=== PATIENT | male | born 1965 ===

== ENCOUNTER 2018-03-13 13:58 | Inpatient (IN) | payer MEDICAID ==
[2018-03-13 13:58] VITALS: BMI 27.2
[2018-03-13] MEDS ORDERED: Iohexol 240 (50 ml) PO ONE (16:03)
[2018-03-13] MEDS ORDERED: Sodium Chloride 0.9% 1,000 ML IV STA (16:04)
--- NOTE | 2018-03-13 16:04 | ED PDOC ---
Addendum entered and electronically signed by Clover López PA-C 03/13/18 19:41: Addendum Addendum: 03/13/18 19:40 Dr. Lopez requested Pt to be started on Vanco and Cefepime. Orders placed Original Note: HPI: CCC, URI, Sore Throat Time Seen by Provider: 03/13/18 15:18 Chief Complaint (Nursing): Flu-like Symptoms Chief Complaint (Provider): Fever History Per: Patient Additional Complaint(s): 52 yo male, denies nay PMH, presents to ED with complaints of worsening chills, fever, back pain, testicular pain and burning on urination x 3 weeks now. Pt seen and evaluated for the same on 02/25 and was treated with Cipro in ED and went home on Levaquin. Diagnosed with epididymitis on US on 02/25/18. Pt admits being compliant on the medication, no relief in symptoms Pt denies any concern for STDs, denies nay recent history of unprotected sex Past Medical History Reviewed: Nursing Documentation, Vital Signs Vital Signs: Last Vital Signs Temp 99.0 F 03/13/18 14:19 Pulse 107 H 03/13/18 14:19 Resp 18 03/13/18 14:19 BP 117/68 03/13/18 14:19 Pulse Ox 99 03/13/18 14:19 - Medical History PMH: No Chronic Diseases Denies: Chronic Kidney Disease - Surgical History Surgical History: No Surg Hx - Family History Family History: States: Unknown Family Hx - Living Arrangements Living Arrangements: With Family - Social History Current smoker - smoking cessation education provided: No Alcohol: None Drugs: Denies - Immunization History Hx Tetanus Toxoid Vaccination: No Hx Influenza Vaccination: No Hx Pneumococcal Vaccination: No - Home Medications Home Medications: Ambulatory Orders Medication Instructions Recorded Unobtainable 03/20/17 Lidocaine 5% [Lidoderm] 1 ea TD DAILY PRN #20 patch 12/05/17 Naproxen 500 mg PO BID 7 Days #14 tab 12/05/17 Docusate Sodium [Colace] 100 mg PO BID #20 capsule 02/25/18 Levofloxacin [Levaquin] 500 mg PO DAILY #10 tablet 02/25/18 Naproxen 375 mg PO Q8 PRN #21 tablet 02/25/18 - Allergies Allergies/Adverse Reactions: Allergies Allergy/AdvReac Type Severity Reaction Status Date / Time No Known Allergies Allergy Verified 03/13/18 14:19 Review of Systems ROS Statement: Except As Marked, All Systems Reviewed And Found Negative Constitutional: Positive for: Fever, Chills Gastrointestinal: Positive for: Abdominal Pain Genitourinary Male: Positive for: Dysuria Physical Exam - Reviewed Nursing Documentation Reviewed: Yes Vital Signs Reviewed: Yes - Physical Exam Appears: Positive for: Non-toxic, No Acute Distress, Uncomfortable Head Exam: Positive for: ATRAUMATIC, NORMAL INSPECTION, NORMOCEPHALIC Skin: Positive for: Normal Color, Warm, Diaphoresis Eye Exam: Positive for: EOMI, Normal appearance, PERRL ENT: Positive for: Normal ENT Inspection Neck: Positive for: Normal, Painless ROM Cardiovascular/Chest: Positive for: Regular Rate, Rhythm Respiratory: Positive for: CNT, Normal Breath Sounds Gastrointestinal/Abdominal: Positive for: Normal Exam, Soft Male Genital Exam: Positive for: normal genitalia, epididymal tenderness, scrotum tenderness (L), testicular tenderness (L). Negative for: inguinal tenderness, lesions, urethral discharge Back: Positive for: Normal Inspection Extremity: Positive for: Normal ROM Neurologic/Psych: Positive for: Alert, Oriented - Laboratory Results Result Diagrams: 03/13/18 16:23 03/13/18 16:23 - ECG O2 Sat by Pulse Oximetry: 99 Medical Decision Making Medical Decision Making: T: 100.8 F P: 107 WBC 11.5 U.Dip (+) Nites, leuks and blood IV Vanco and Rocephin started, along with IVF and Toradol Re-eval, Pt reports pain improved. T: 98.9 F Lactate WNL US resulted: Epididymo-orchitis Case discussed with Dr. Palafox. agreed with admission at this time. Pt denies having a PMD, call placed to Dr. Diaz- grey on-call. Arrangements made. Dr. Ring and Dr. Lopez consulted as well. Disposition - Clinical Impression Clinical Impression: Epididymo-orchitis, Sepsis - Patient ED Disposition Is Patient to be Admitted: Yes - Disposition Disposition Time: 19:20 Condition: STABLE Instructions: Epididymo-orchitis (ED), Sepsis in Adults Forms: [employer] (Finnish)
[2018-03-13 16:29] LABS: BASO % 0.3 % (0.0-2.0); LYMPH # 1.2 K/uL (1.0-4.3); LYMPH % 10.2 % (20.0-40.0); MEAN CELL VOLUME 87.8 fl (80.0-94.0); MEAN CORPUSCULAR HEMOGLOBIN 29.5 pg (27.0-31.0); MEAN CORPUSCULAR HGB CONC 33.6 g/dL (33.0-37.0); MEAN PLATELET VOLUME 7.6 fl (7.2-11.7); MONO # 1.1 K/uL (0.0-0.8); MONO % 9.9 % (0.0-10.0); NEUT # 9.2 K/uL (1.8-7.0); NEUT % 79.6 % (50.0-75.0); RBC 4.42 Mil/uL (4.40-5.90); WHITE BLOOD COUNT 11.5 K/uL (4.8-10.8)
[2018-03-13] MEDS ORDERED: Iohexol 240 (50 ml) ONE (16:29)
[2018-03-13 16:35] LABS: SQUAMOUS EPITHIAL 1 /hpf (0-5); URINE BACTERIA MOD (<OCC); URINE BILIRUBIN NEGATIVE (NEGATIVE); URINE BLOOD LARGE (NEGATIVE); URINE CLARITY TURBID (Clear); URINE COLOR AMBER (YELLOW); URINE GLUCOSE (UA) NEG (Normal); URINE LEUKOCYTE ESTERASE LARGE Leu/uL (Negative); URINE PROTEIN 100 mg/dL (NEGATIVE)
[2018-03-13 16:40] LABS: ALB/GLOB RATIO 0.9 (1.0-2.1); ALT/SGPT 77 U/L (21-72); AMYLASE 50 U/L (30-110); AST/SGOT 61 U/L (17-59); BLOOD UREA NITROGEN 15 mg/dl (9-20); CALCIUM 8.9 mg/dL (8.4-10.2); GFR NON-AFRICAN AMERICAN > 60; LIPASE 64 U/L (23-300)
[2018-03-13 16:46] LABS: VENOUS BLOOD GAS BASE EXCESS 3.7 mmol/L (0.0-2.0); VENOUS BLOOD GAS PCO2 31 mmHg (40-60); VENOUS BLOOD GAS PO2 50 mm/Hg (30-55); VENOUS BLOOD PH 7.53 (7.32-7.43)
--- NOTE | 2018-03-13 17:05 | RAD ---
Date of service: 03/13/2018 HISTORY: cough COMPARISON: Chest radiograph dated 12/05/2017. FINDINGS: LUNGS: 1.4 x 1.4 cm nodular density in the left mid/upper lung. No active pulmonary disease. PLEURA: No significant pleural effusion identified, no pneumothorax apparent. CARDIOVASCULAR: Normal. OSSEOUS STRUCTURES: Multiple old right-sided rib fractures. Unchanged. VISUALIZED UPPER ABDOMEN: Right upper quadrant surgical clips. OTHER FINDINGS: None. IMPRESSION: 1.4 cm nodular density in the left mid/upper lung. CT scan can be obtained for further evaluation as clinically warranted on a nonemergent basis.
[2018-03-13] MEDS ORDERED: Iohexol 300 100 ML IJ ONE (17:19)
[2018-03-13] MEDS ORDERED: Sodium Chloride 0.9% 50 ML IV ONE (17:19)
[2018-03-13] MEDS ORDERED: cefTRIAXone (Rocephin) 1 gm Inj ONE (17:50)
--- NOTE | 2018-03-13 17:57 | US ---
Date of service: 03/13/2018 HISTORY: left testicular pain TECHNIQUE: Realtime sonography through the scrotum with color and doppler flow. COMPARISON: Testicular ultrasound performed 02/25/2018 FINDINGS: RIGHT TESTICLE: Measures 4.9 x 2.8 x 2.0 cm. Normal echotexture and flow. RIGHT EPIDIDYMIS: Epididymal head measures 1.0 x 1.0 x 0.7 cm. Grossly unremarkable appearance with normal flow. 0.3 x 0.4 x 0.3 cm cyst/spermatocele. LEFT TESTICLE: Measures 4.4 x 2.8 x 2.4 cm. Normal echotexture with increased flow. LEFT EPIDIDYMIS: Epididymal head measures 1.1 x 2.0 x 1.4 cm. Enlarged with increased flow. HYDROCELE: [id number] left hydrocele. VARICOCELE: None. OTHER FINDINGS: None. IMPRESSION: Interval enlargement of left epididymal head with increased vascularity. Interval development of increased left testicular flow. Findings consistent with progression to epididymo-orchitis.
[2018-03-13] MEDS ORDERED: Vancomycin 1 g Inj ONE (19:14)
[2018-03-13] MEDS ORDERED: Pneumococcal 23-Valent Vaccine IM ONE (23:18)
[2018-03-14] MEDS: Cefepime 2 GM in Sodium Chloride 0.9% 100 ML IVPB SCH ×2 (06:49→09:22)
[2018-03-14 07:07] LABS: HEMOGLOBIN 13.2 g/dL (12.0-18.0); MEAN CELL VOLUME 88.3 fl (80.0-94.0); MEAN CORPUSCULAR HEMOGLOBIN 29.6 pg (27.0-31.0); MEAN CORPUSCULAR HGB CONC 33.6 g/dL (33.0-37.0); RBC 4.46 Mil/uL (4.40-5.90); RED CELL DISTRIBUTION WIDTH 13.9 % (11.5-14.5); WHITE BLOOD COUNT 16.8 K/uL (4.8-10.8)
[2018-03-14 07:52] LABS: ALB/GLOB RATIO 0.9 (1.0-2.1); ALBUMIN 3.6 g/dL (3.5-5.0); ALT/SGPT 61 U/L (21-72); AST/SGOT 48 U/L (17-59); BLOOD UREA NITROGEN 11 mg/dl (9-20); CALCIUM 8.7 mg/dL (8.4-10.2); GFR NON-AFRICAN AMERICAN > 60
--- NOTE | 2018-03-14 08:56 | CT ---
Date of service: 03/13/2018 PROCEDURE: CT Abdomen and Pelvis with contrast HISTORY: pelvic pain, fever COMPARISON: None. TECHNIQUE: Contrast dose: 95 mL Omnipaque 300 Radiation dose: Total exam DLP = 556.3 mGy-cm. This CT exam was performed using one or more of the following dose reduction techniques: Automated exposure control, adjustment of the mA and/or kV according to patient size, and/or use of iterative reconstruction technique. FINDINGS: LOWER THORAX: Unremarkable. LIVER: Adjacent low-density structures in the right hepatic lobe measuring 2.2 and 2.5 cm with adjacent coil mass. No ductal dilatation. GALLBLADDER AND BILE DUCTS: Unremarkable. PANCREAS: Unremarkable. No gross lesion or ductal dilatation. SPLEEN: Unremarkable. ADRENALS: Unremarkable. No mass. KIDNEYS AND URETERS: Unremarkable. No hydronephrosis. No solid mass. VASCULATURE: Unremarkable. No aortic aneurysm. BOWEL: Unremarkable. No obstruction. No gross mural thickening. APPENDIX: Normal appendix. PERITONEUM: Unremarkable. No free fluid. No free air. LYMPH NODES: Unremarkable. No enlarged lymph nodes. BLADDER: Unremarkable. REPRODUCTIVE: Unremarkable. BONES: No acute fracture. Old right scapular and posterior right rib fractures. Age-indeterminate compression deformity of L1. OTHER FINDINGS: None. IMPRESSION: No acute abdominal pelvic pathology. Adjacent low-density structures in the right hepatic lobe with adjacent coil mass. Correlation with prior imaging and procedural history is recommended. Age-indeterminate L1 superior endplate compression deformity. MRI can be obtained for further characterization of acuity as clinically warranted.
--- NOTE | 2018-03-14 10:33 | CP.PCM.HP ---
History of Present Illness - History of Present Illness History of Present Illness: 52 YR OLD MALE ADMITTED VIA THE ER BECAUSE OF FEVER/CHILLS AND TESTICULAR PAINS.HE WAS SEEN IN THE ER ON 02/25/18 BECAUSE OF SIMILAR COMPLAINTS AND SENT HOME ON CIPRO BUT SYMPTOMS WORSENED. HX OF CHRONIC ALCOHOL USE Present on Admission - Present on Admission Any Indicators Present on Admission: No Past Patient History - Infectious Disease Hx of Infectious Diseases: None - Past Medical History & Family History Past Medical History?: No - Past Social History Smoking Status: Never Smoked - CARDIAC Hx Cardiac Disorders: No - PULMONARY Hx Respiratory Disorders: No - NEUROLOGICAL Hx Neurological Disorder: No - HEENT Hx HEENT Problems: No - RENAL Hx Chronic Kidney Disease: No - ENDOCRINE/METABOLIC Hx Endocrine Disorders: No - HEMATOLOGICAL/ONCOLOGICAL Hx Blood Disorders: No - INTEGUMENTARY Hx Dermatological Problems: No - MUSCULOSKELETAL/RHEUMATOLOGICAL Hx Musculoskeletal Disorders: No Hx Falls: No - GASTROINTESTINAL Hx Gastrointestinal Disorders: No - GENITOURINARY/GYNECOLOGICAL Hx Genitourinary Disorders: No - PSYCHIATRIC Hx Psychophysiologic Disorder: Yes Hx Substance Use: No Other/Comment: Alcohol Abuse - SURGICAL HISTORY Hx Surgeries: Yes Hx Orthopedic Surgery: Yes - ANESTHESIA Hx Anesthesia: Yes Hx Anesthesia Reactions: No Meds Allergies/Adverse Reactions: Allergies Allergy/AdvReac Type Severity Reaction Status Date / Time No Known Allergies Allergy Verified 03/13/18 14:19 Physical Exam - Constitutional Appears: In Acute Distress - Head Exam Head Exam: ATRAUMATIC, NORMAL INSPECTION, NORMOCEPHALIC - Eye Exam Eye Exam: EOMI, Normal appearance, PERRL Pupil Exam: NORMAL ACCOMODATION, PERRL - ENT Exam ENT Exam: Mucous Membranes Moist, Normal Exam - Neck Exam Neck exam: Positive for: Normal Inspection - Respiratory Exam Respiratory Exam: Clear to Auscultation Bilateral, NORMAL BREATHING PATTERN - Cardiovascular Exam Cardiovascular Exam: REGULAR RHYTHM - GI/Abdominal Exam GI & Abdominal Exam: Normal Bowel Sounds, Soft. absent: Tenderness - Rectal Exam Rectal Exam: NORMAL INSPECTION - Exam Exam: Scrotal Swelling, Testicular Tenderness - Extremities Exam Extremities exam: Positive for: normal inspection - Back Exam Back exam: NORMAL INSPECTION - Neurological Exam Neurological exam: Alert, CN II-XII Intact, Normal Gait, Oriented x3, Reflexes Normal - Psychiatric Exam Psychiatric exam: Normal Affect, Normal Mood - Skin Skin Exam: Dry, Intact, Normal Color, Warm Results - Vital Signs Recent Vital Signs: Last Vital Signs Temp 99 F 03/14/18 08:53 Pulse 103 H 03/14/18 08:53 Resp 18 03/14/18 08:53 BP 134/75 03/14/18 08:53 Pulse Ox 98 03/14/18 08:53 - Labs Result Diagrams: 03/14/18 05:52 03/14/18 05:52 Labs: Laboratory Results - last 24 hr 03/13/18 03/13/18 03/13/18 04:25 16:23 16:23 WBC 11.5 H RBC 4.42 Hgb 13.0 Hct 38.8 MCV 87.8 MCH 29.5 MCHC 33.6 RDW 14.0 Plt Count 216 MPV 7.6 Neut % (Auto) 79.6 H Lymph % (Auto) 10.2 L Bates % (Auto) 9.9 Eos % (Auto) 0.0 Baso % (Auto) 0.3 Neut # (Auto) 9.2 H Lymph # (Auto) 1.2 Bates # (Auto) 1.1 H Eos # (Auto) 0.0 Baso # (Auto) 0.0 pO2 50 VBG pH 7.53 H VBG pCO2 31 L VBG HCO3 27.6 VBG Total CO2 26.9 VBG O2 Sat (Calc) 92.9 H VBG Base Excess 3.7 H VBG Potassium 3.8 Sodium 129.0 L 132 Chloride 96.0 L 96 L Glucose 118 H Lactate 1.0 FiO2 21.0 Potassium 3.8 Carbon Dioxide 26 Anion Gap 14 BUN 15 Creatinine 0.9 Est GFR ( Amer) > 60 Est GFR (Non-Af Amer) > 60 Random Glucose 116 H Calcium 8.9 Total Bilirubin 0.6 AST 61 H D ALT 77 H D Alkaline Phosphatase 180 H D Total Protein 8.1 Albumin 4.0 Globulin 4.2 H Albumin/Globulin Ratio 0.9 L Amylase 50 Lipase 64 Prostate Specific Ag Venous Blood Potassium 3.8 Urine Color Urine Clarity Urine pH Ur Specific [place] Urine Protein Urine Glucose (UA) Urine Ketones Urine Blood Urine Nitrate Urine Bilirubin Urine Urobilinogen Ur Leukocyte Esterase Urine RBC (Auto) Urine Microscopic WBC Ur Squamous Epith Cells Ur Transition Epith Cell Urine Bacteria Influenza Typ A,B (EIA) 03/13/18 03/13/18 03/14/18 16:23 16:23 05:52 WBC 16.8 H RBC 4.46 Hgb 13.2 Hct 39.4 MCV 88.3 MCH 29.6 MCHC 33.6 RDW 13.9 Plt Count 206 MPV Neut % (Auto) Lymph % (Auto) Bates % (Auto) Eos % (Auto) Baso % (Auto) Neut # (Auto) Lymph # (Auto) Bates # (Auto) Eos # (Auto) Baso # (Auto) pO2 VBG pH VBG pCO2 VBG HCO3 VBG Total CO2 VBG O2 Sat (Calc) VBG Base Excess VBG Potassium Sodium Chloride Glucose Lactate FiO2 Potassium Carbon Dioxide Anion Gap BUN Creatinine Est GFR ( Amer) Est GFR (Non-Af Amer) Random Glucose Calcium Total Bilirubin AST ALT Alkaline Phosphatase Total Protein Albumin Globulin Albumin/Globulin Ratio Amylase Lipase Prostate Specific Ag Venous Blood Potassium Urine Color Kaur Urine Clarity Turbid Urine pH 6.0 Ur Specific [place] 1.016 Urine Protein 100 Urine Glucose (UA) Neg Urine Ketones 20 Urine Blood Large Urine Nitrate Positive H Urine Bilirubin Negative Urine Urobilinogen 2.0 Ur Leukocyte Esterase Large Urine RBC (Auto) 98 H Urine Microscopic WBC 1414 H Ur Squamous Epith Cells 1 Ur Transition Epith Cell 3 Urine Bacteria Mod H Influenza Typ A,B (EIA) Negative for flu a/b 03/14/18 05:52 WBC RBC Hgb Hct MCV MCH MCHC RDW Plt Count MPV Neut % (Auto) Lymph % (Auto) Bates % (Auto) Eos % (Auto) Baso % (Auto) Neut # (Auto) Lymph # (Auto) Bates # (Auto) Eos # (Auto) Baso # (Auto) pO2 VBG pH VBG pCO2 VBG HCO3 VBG Total CO2 VBG O2 Sat (Calc) VBG Base Excess VBG Potassium Sodium 134 Chloride 96 L Glucose Lactate FiO2 Potassium 3.9 Carbon Dioxide 28 Anion Gap 14 BUN 11 Creatinine 0.7 L Est GFR ( Amer) > 60 Est GFR (Non-Af Amer) > 60 Random Glucose 124 H Calcium 8.7 Total Bilirubin 0.6 AST 48 ALT 61 Alkaline Phosphatase 170 H Total Protein 7.6 Albumin 3.6 Globulin 4.0 H Albumin/Globulin Ratio 0.9 L Amylase Lipase Prostate Specific Ag 11.2 H Venous Blood Potassium Urine Color Urine Clarity Urine pH Ur Specific [place] Urine Protein Urine Glucose (UA) Urine Ketones Urine Blood Urine Nitrate Urine Bilirubin Urine Urobilinogen Ur Leukocyte Esterase Urine RBC (Auto) Urine Microscopic WBC Ur Squamous Epith Cells Ur Transition Epith Cell Urine Bacteria Influenza Typ A,B (EIA) Assessment & Plan - Assessment and Plan (Free Text) Assessment: ACUTE EPIDIDYMITIS ORCHITIS PROBABLE ALCOHOLIC LIVER DZ LIVER LESION PULMONARY NODULE SEPSIS ELEVATED PSA--PROSTATITIS[DOUBT MALIGNANCY] Plan: UROLOGY AND ID EVALUATION IV ANTIBIOTICS ANALGESICS CT SCAN OF CHEST MRI OF LIVER
[2018-03-14] MEDS: Dextrose 5%/0.45% NS 1,000 ML IV SCH (11:31)
--- NOTE | 2018-03-14 11:41 | CP.PCM.CON ---
History of Present Illness - History of Present Illness History of Present Illness: Infectious Disease Consultation Note- HPI- Patient is a 52 year old male with no PMH who is admitted with left testicular swelling and pain and redness. Patient states he was in hospital 2 weeks ago for similar complaints and he was given IV abx and d/c home on oral cipro . He states his condition did not improve on the oral antibiotics and his left testicular region swelling and pain worsened and he also developed fever and chills and bodyaches and hence he returned to hospital for further evaluation and treatment. He denies any dysurea and denies any penile discharge, denies any sores or vesicles. Denies any recent sexual encounters. denies past history of epididymitis. he denies any sob but has dry cough as per him for few days, denies any KING, denies any nausea or vomiting, denies any diarrhea, denies any abd. pain, denies any chest pain. Review of Systems - Review of Systems Review of Systems: ROS- as stated in HPI Past Patient History - Infectious Disease Hx of Infectious Diseases: None - Past Medical History & Family History Past Medical History?: No - Past Social History Smoking Status: Never Smoked Alcohol: Other Drugs: Denies Home Situation {Lives}: Alone - CARDIAC Hx Cardiac Disorders: No - PULMONARY Hx Respiratory Disorders: No - NEUROLOGICAL Hx Neurological Disorder: No - HEENT Hx HEENT Problems: No - RENAL Hx Chronic Kidney Disease: No - ENDOCRINE/METABOLIC Hx Endocrine Disorders: No - HEMATOLOGICAL/ONCOLOGICAL Hx Blood Disorders: No - INTEGUMENTARY Hx Dermatological Problems: No - MUSCULOSKELETAL/RHEUMATOLOGICAL Hx Musculoskeletal Disorders: No Hx Falls: No - GASTROINTESTINAL Hx Gastrointestinal Disorders: No - GENITOURINARY/GYNECOLOGICAL Hx Genitourinary Disorders: No - PSYCHIATRIC Hx Psychophysiologic Disorder: Yes Hx Substance Use: No Other/Comment: Alcohol Abuse - SURGICAL HISTORY Hx Surgeries: Yes Hx Orthopedic Surgery: Yes - ANESTHESIA Hx Anesthesia: Yes Hx Anesthesia Reactions: No Meds Allergies/Adverse Reactions: Allergies Allergy/AdvReac Type Severity Reaction Status Date / Time No Known Allergies Allergy Verified 03/13/18 14:19 - Medications Medications: Current Medications Acetaminophen (Tylenol 325mg Tab) 650 mg PO Q4 PRN PRN Reason: Fever >100.4 F Cefepime HCl 2 gm/ Sodium (Chloride) 100 mls @ 100 mls/hr IVPB Q12 DOMONIQUE; Protocol Last Admin: 03/14/18 09:22 Dose: 100 mls/hr Vancomycin HCl 500 mg/ Sodium (Chloride) 100 mls @ 100 mls/hr IVPB Q12 DOMONIQUE; Protocol Last Admin: 03/14/18 09:22 Dose: 100 mls/hr Dextrose/Sodium Chloride (Dextrose 5%/0.45% Ns 1000 Ml) 1,000 mls @ 42 mls/hr IV .[id number] DOMONIQUE Stop: 03/15/18 10:40 Last Admin: 03/14/18 11:31 Dose: 42 mls/hr Morphine Sulfate (Morphine) 2 mg IVP Q4 PRN PRN Reason: Pain, severe (8-10) Last Admin: 03/14/18 06:48 Dose: 2 mg Physical Exam - Constitutional Appears: Non-toxic, No Acute Distress - Head Exam Head Exam: ATRAUMATIC - Eye Exam Eye Exam: EOMI, PERRL - ENT Exam ENT Exam: Normal Oropharynx - Neck Exam Neck exam: Positive for: Full Rom - Respiratory Exam Respiratory Exam: Clear to Auscultation Bilateral, NORMAL BREATHING PATTERN - Cardiovascular Exam Cardiovascular Exam: RRR, +S1, +S2 - GI/Abdominal Exam GI & Abdominal Exam: Normal Bowel Sounds, Soft Additional comments: Nt, ND - Exam Exam: Scrotal Swelling Additional comments: b/l scrotal swelling l>r with erythema no discharge, no lesions 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) - Extremities Exam Extremities exam: Positive for: normal inspection - Neurological Exam Neurological exam: Alert, Oriented x3 Results - Vital Signs Recent Vital Signs: Last Vital Signs Temp 99 F 03/14/18 08:53 Pulse 103 H 03/14/18 09:00 Resp 18 03/14/18 08:53 BP 134/75 03/14/18 08:53 Pulse Ox 98 03/14/18 08:53 - Labs Result Diagrams: 03/14/18 05:52 03/14/18 05:52 Labs: Laboratory Results - last 24 hr 03/13/18 03/13/18 03/13/18 04:25 16:23 16:23 WBC 11.5 H RBC 4.42 Hgb 13.0 Hct 38.8 MCV 87.8 MCH 29.5 MCHC 33.6 RDW 14.0 Plt Count 216 MPV 7.6 Neut % (Auto) 79.6 H Lymph % (Auto) 10.2 L Overton % (Auto) 9.9 Eos % (Auto) 0.0 Baso % (Auto) 0.3 Neut # (Auto) 9.2 H Lymph # (Auto) 1.2 Overton # (Auto) 1.1 H Eos # (Auto) 0.0 Baso # (Auto) 0.0 pO2 50 VBG pH 7.53 H VBG pCO2 31 L VBG HCO3 27.6 VBG Total CO2 26.9 VBG O2 Sat (Calc) 92.9 H VBG Base Excess 3.7 H VBG Potassium 3.8 Sodium 129.0 L 132 Chloride 96.0 L 96 L Glucose 118 H Lactate 1.0 FiO2 21.0 Potassium 3.8 Carbon Dioxide 26 Anion Gap 14 BUN 15 Creatinine 0.9 Est GFR ( Amer) > 60 Est GFR (Non-Af Amer) > 60 Random Glucose 116 H Calcium 8.9 Total Bilirubin 0.6 AST 61 H D ALT 77 H D Alkaline Phosphatase 180 H D Total Protein 8.1 Albumin 4.0 Globulin 4.2 H Albumin/Globulin Ratio 0.9 L Amylase 50 Lipase 64 Prostate Specific Ag Venous Blood Potassium 3.8 Urine Color Urine Clarity Urine pH Ur Specific [place] Urine Protein Urine Glucose (UA) Urine Ketones Urine Blood Urine Nitrate Urine Bilirubin Urine Urobilinogen Ur Leukocyte Esterase Urine RBC (Auto) Urine Microscopic WBC Ur Squamous Epith Cells Ur Transition Epith Cell Urine Bacteria Influenza Typ A,B (EIA) 03/13/18 03/13/18 03/14/18 16:23 16:23 05:52 WBC 16.8 H RBC 4.46 Hgb 13.2 Hct 39.4 MCV 88.3 MCH 29.6 MCHC 33.6 RDW 13.9 Plt Count 206 MPV Neut % (Auto) Lymph % (Auto) Overton % (Auto) Eos % (Auto) Baso % (Auto) Neut # (Auto) Lymph # (Auto) Overton # (Auto) Eos # (Auto) Baso # (Auto) pO2 VBG pH VBG pCO2 VBG HCO3 VBG Total CO2 VBG O2 Sat (Calc) VBG Base Excess VBG Potassium Sodium Chloride Glucose Lactate FiO2 Potassium Carbon Dioxide Anion Gap BUN Creatinine Est GFR ( Amer) Est GFR (Non-Af Amer) Random Glucose Calcium Total Bilirubin AST ALT Alkaline Phosphatase Total Protein Albumin Globulin Albumin/Globulin Ratio Amylase Lipase Prostate Specific Ag Venous Blood Potassium Urine Color Kaur Urine Clarity Turbid Urine pH 6.0 Ur Specific [place] 1.016 Urine Protein 100 Urine Glucose (UA) Neg Urine Ketones 20 Urine Blood Large Urine Nitrate Positive H Urine Bilirubin Negative Urine Urobilinogen 2.0 Ur Leukocyte Esterase Large Urine RBC (Auto) 98 H Urine Microscopic WBC 1414 H Ur Squamous Epith Cells 1 Ur Transition Epith Cell 3 Urine Bacteria Mod H Influenza Typ A,B (EIA) Negative for flu a/b 03/14/18 05:52 WBC RBC Hgb Hct MCV MCH MCHC RDW Plt Count MPV Neut % (Auto) Lymph % (Auto) Overton % (Auto) Eos % (Auto) Baso % (Auto) Neut # (Auto) Lymph # (Auto) Overton # (Auto) Eos # (Auto) Baso # (Auto) pO2 VBG pH VBG pCO2 VBG HCO3 VBG Total CO2 VBG O2 Sat (Calc) VBG Base Excess VBG Potassium Sodium 134 Chloride 96 L Glucose Lactate FiO2 Potassium 3.9 Carbon Dioxide 28 Anion Gap 14 BUN 11 Creatinine 0.7 L Est GFR ( Amer) > 60 Est GFR (Non-Af Amer) > 60 Random Glucose 124 H Calcium 8.7 Total Bilirubin 0.6 AST 48 ALT 61 Alkaline Phosphatase 170 H Total Protein 7.6 Albumin 3.6 Globulin 4.0 H Albumin/Globulin Ratio 0.9 L Amylase Lipase Prostate Specific Ag 11.2 H Venous Blood Potassium Urine Color Urine Clarity Urine pH Ur Specific [place] Urine Protein Urine Glucose (UA) Urine Ketones Urine Blood Urine Nitrate Urine Bilirubin Urine Urobilinogen Ur Leukocyte Esterase Urine RBC (Auto) Urine Microscopic WBC Ur Squamous Epith Cells Ur Transition Epith Cell Urine Bacteria Influenza Typ A,B (EIA) Laboratory Results - last 72 hr 03/13/18 03/13/18 03/13/18 04:25 16:23 16:23 WBC 11.5 H RBC 4.42 Hgb 13.0 Hct 38.8 MCV 87.8 MCH 29.5 MCHC 33.6 RDW 14.0 Plt Count 216 MPV 7.6 Neut % (Auto) 79.6 H Lymph % (Auto) 10.2 L Over[place] % (Auto) 9.9 Eos % (Auto) 0.0 Baso % (Auto) 0.3 Neut # (Auto) 9.2 H Lymph # (Auto) 1.2 Overton # (Auto) 1.1 H Eos # (Auto) 0.0 Baso # (Auto) 0.0 pO2 50 VBG pH 7.53 H VBG pCO2 31 L VBG HCO3 27.6 VBG Total CO2 26.9 VBG O2 Sat (Calc) 92.9 H VBG Base Excess 3.7 H VBG Potassium 3.8 Sodium 129.0 L 132 Chloride 96.0 L 96 L Glucose 118 H Lactate 1.0 FiO2 21.0 Potassium 3.8 Carbon Dioxide 26 Anion Gap 14 BUN 15 Creatinine 0.9 Est GFR ( Amer) > 60 Est GFR (Non-Af Amer) > 60 Random Glucose 116 H Calcium 8.9 Total Bilirubin 0.6 AST 61 H D ALT 77 H D Alkaline Phosphatase 180 H D Total Protein 8.1 Albumin 4.0 Globulin 4.2 H Albumin/Globulin Ratio 0.9 L Amylase 50 Lipase 64 Prostate Specific Ag Venous Blood Potassium 3.8 Urine Color Urine Clarity Urine pH Ur Specific [place] Urine Protein Urine Glucose (UA) Urine Ketones Urine Blood Urine Nitrate Urine Bilirubin Urine Urobilinogen Ur Leukocyte Esterase Urine RBC (Auto) Urine Microscopic WBC Ur Squamous Epith Cells Ur Transition Epith Cell Urine Bacteria Influenza Typ A,B (EIA) 03/13/18 03/13/18 03/14/18 16:23 16:23 05:52 WBC 16.8 H RBC 4.46 Hgb 13.2 Hct 39.4 MCV 88.3 MCH 29.6 MCHC 33.6 RDW 13.9 Plt Count 206 MPV Neut % (Auto) Lymph % (Auto) Overton % (Auto) Eos % (Auto) Baso % (Auto) Neut # (Auto) Lymph # (Auto) Over[place] # (Auto) Eos # (Auto) Baso # (Auto) pO2 VBG pH VBG pCO2 VBG HCO3 VBG Total CO2 VBG O2 Sat (Calc) VBG Base Excess VBG Potassium Sodium Chloride Glucose Lactate FiO2 Potassium Carbon Dioxide Anion Gap BUN Creatinine Est GFR ( Amer) Est GFR (Non-Af Amer) Random Glucose Calcium Total Bilirubin AST ALT Alkaline Phosphatase Total Protein Albumin Globulin Albumin/Globulin Ratio Amylase Lipase Prostate Specific Ag Venous Blood Potassium Urine Color Kaur Urine Clarity Turbid Urine pH 6.0 Ur Specific [place] 1.016 Urine Protein 100 Urine Glucose (UA) Neg Urine Ketones 20 Urine Blood Large Urine Nitrate Positive H Urine Bilirubin Negative Urine Urobilinogen 2.0 Ur Leukocyte Esterase Large Urine RBC (Auto) 98 H Urine Microscopic WBC 1414 H Ur Squamous Epith Cells 1 Ur Transition Epith Cell 3 Urine Bacteria Mod H Influenza Typ A,B (EIA) Negative for flu a/b 03/14/18 05:52 WBC RBC Hgb Hct MCV MCH MCHC RDW Plt Count MPV Neut % (Auto) Lymph % (Auto) Over[place] % (Auto) Eos % (Auto) Baso % (Auto) Neut # (Auto) Lymph # (Auto) [place] # (Auto) Eos # (Auto) Baso # (Auto) pO2 VBG pH VBG pCO2 VBG HCO3 VBG Total CO2 VBG O2 Sat (Calc) VBG Base Excess VBG Potassium Sodium 134 Chloride 96 L Glucose Lactate FiO2 Potassium 3.9 Carbon Dioxide 28 Anion Gap 14 BUN 11 Creatinine 0.7 L Est GFR ( Amer) > 60 Est GFR (Non-Af Amer) > 60 Random Glucose 124 H Calcium 8.7 Total Bilirubin 0.6 AST 48 ALT 61 Alkaline Phosphatase 170 H Total Protein 7.6 Albumin 3.6 Globulin 4.0 H Albumin/Globulin Ratio 0.9 L Amylase Lipase Prostate Specific Ag 11.2 H Venous Blood Potassium Urine Color Urine Clarity Urine pH Ur Specific [place] Urine Protein Urine Glucose (UA) Urine Ketones Urine Blood Urine Nitrate Urine Bilirubin Urine Urobilinogen Ur Leukocyte Esterase Urine RBC (Auto) Urine Microscopic WBC Ur Squamous Epith Cells Ur Transition Epith Cell Urine Bacteria Influenza Typ A,B (EIA) Microbiology 03/13/18 16:00 Blood-Venous Gram Stain - Final 02/25/18 19:30 Urine Urine Culture - Final Escherichia Coli 03/13/18 16:23 Urine,Random Urine Culture - Preliminary Gram Negative Brent 03/13/18 16:00 Blood-Venous Blood Culture - Preliminary 03/13/18 16:00 Blood-Venous Gram Negative Brent Accession No. : [id number] Patient Name / ID : SHANI AGUIAR / [id number] Exam Date : 03/13/2018 18:49:50 ( Approved ) Study Comment : Sex / Age : M / 52Y Creator : Trent Gallegos MD Dictator : Trent Gallegos MD Senior Shipping Clerk : Home Care Chaplain : Trent Gallegos MD Approver2 : Report Date : 03/14/2018 08:54:42 My Comment : Date of service: 03/13/2018 PROCEDURE: CT Abdomen and Pelvis with contrast HISTORY: pelvic pain, fever COMPARISON: None. TECHNIQUE: Contrast dose: 95 mL Omnipaque 300 Radiation dose: Total exam DLP = 556.3 mGy-cm. This CT exam was performed using one or more of the following dose reduction techniques: Automated exposure control, adjustment of the mA and/or kV according to patient size, and/or use of iterative reconstruction technique. FINDINGS: LOWER THORAX: Unremarkable. LIVER: Adjacent low-density structures in the right hepatic lobe measuring 2.2 and 2.5 cm with adjacent coil mass. No ductal dilatation. GALLBLADDER AND BILE DUCTS: Unremarkable. PANCREAS: Unremarkable. No gross lesion or ductal dilatation. SPLEEN: Unremarkable. ADRENALS: Unremarkable. No mass. KIDNEYS AND URETERS: Unremarkable. No hydronephrosis. No solid mass. VASCULATURE: Unremarkable. No aortic aneurysm. BOWEL: Unremarkable. No obstruction. No gross mural thickening. APPENDIX: Normal appendix. PERITONEUM: Unremarkable. No free fluid. No free air. LYMPH NODES: Unremarkable. No enlarged lymph nodes. BLADDER: Unremarkable. REPRODUCTIVE: Unremarkable. BONES: No acute fracture. Old right scapular and posterior right rib fractures. Age- indeterminate compression deformity of L1. OTHER FINDINGS: None. IMPRESSION: No acute abdominal pelvic pathology. Adjacent low-density structures in the right hepatic lobe with adjacent coil mas s. Correlation with prior imaging and procedural history is recommended. Age-indeterminate L1 superior endplate compression deformity. MRI can be obtained for further characterization of acuity as clinically warranted. Accession No. : [id number] Patient Name / ID : SHANI AGUIAR / [id number] Exam Date : 03/13/2018 16:01:30 ( Approved ) Study Comment : Sex / Age : M / 52Y Creator : Trent Gallegos MD Dictator : Trent Gallegos MD Senior Shipping Clerk : Home Care Chaplain : Trent Gallegos MD Approver2 : Report Date : 03/13/2018 17:56:15 My Comment : Date of service: 03/13/2018 HISTORY: left testicular pain TECHNIQUE: Realtime sonography through the scrotum with color and doppler flow. COMPARISON: Testicular ultrasound performed 02/25/2018 FINDINGS: RIGHT TESTICLE: Measures 4.9 x 2.8 x 2.0 cm. Normal echotexture and flow. RIGHT EPIDIDYMIS: Epididymal head measures 1.0 x 1.0 x 0.7 cm. Grossly unremarkable appearance with normal flow. 0.3 x 0.4 x 0.3 cm cyst/spermatocele. LEFT TESTICLE: Measures 4.4 x 2.8 x 2.4 cm. Normal echotexture with increased flow. LEFT EPIDIDYMIS: Epididymal head measures 1.1 x 2.0 x 1.4 cm. Enlarged with increased flow. HYDROCELE: Gmyg-[id number] left hydrocele. VARICOCELE: None. OTHER FINDINGS: None. IMPRESSION: Interval enlargement of left epididymal head with increased vascularity. Interval development of increased left testicular flow. Findings consistent with progression to epididymo-orchitis. Assessment & Plan (1) Epididymo-orchitis Status: Acute (2) Sepsis Status: Acute (3) Bacteremia due to Gram-negative bacteria Status: Acute - Assessment and Plan (Free Text) Assessment: A/P- 52 year old male admitted with left epididimo-orchitis found to also have e.coli UTI and GNR bacteremia. plan- await ID and sensitivity of the GNR in blood cx. advise to place on IV meropenem for broad gram neg coverage for both e.coli UTI and the GNR bactermia. advise to also start IV doxycycline 100 mg BID. check urien GC/Chlamydia. check RPR. check HIV ab/AG. check 2 more blood cx. check TTE r/o any vegetations. all labs and imaging reviewed. all above d/w patient and he verbalizes full understanding of all above and agrees with above plan of care. Thank you fro allowing me to take part in the care of this patient.
[2018-03-14] MEDS: Meropenem 1 GM in Sodium Chloride 0.9% 100 ML IVPB SCH (17:05)
--- NOTE | 2018-03-14 21:34 | CP.PCM.PN ---
Subjective - Date & Time of Evaluation Date of Evaluation: 03/14/18 Time of Evaluation: 21:30 - Subjective Subjective: 52 year old hisp male who presented in er again because left testicular swelling did not improve on cipro and he felt feverish at home. Scrotal us consistant with epidimoorchitis. Pe consistant with epidimoorchitis A Epidimititis not re sponding to cipro Suggest, Continue antibiotica as per ID adjust based on sensitivites a full 10 to 14 day course of sensitive antibiotics. Itz Objective - Vital Signs/Intake and Output Vital Signs (last 24 hours): Temp Pulse Resp BP Pulse Ox 99.0 F 96 H 18 119/72 95 03/14/18 19:51 03/14/18 20:47 03/14/18 19:51 03/14/18 19:51 03/14/18 19:51 - Medications Medications: Current Medications Acetaminophen (Tylenol 325mg Tab) 650 mg PO Q4 PRN PRN Reason: Fever >100.4 F Dextrose/Sodium Chloride (Dextrose 5%/0.45% Ns 1000 Ml) 1,000 mls @ 42 mls/hr IV .[id number] DOMONIQUE Stop: 03/15/18 10:40 Last Admin: 03/14/18 11:31 Dose: 42 mls/hr Meropenem 1 gm/ Sodium (Chloride) 100 mls @ 100 mls/hr IVPB Q8 DOMONIQUE; Protocol Last Admin: 03/14/18 17:05 Dose: 100 mls/hr Doxycycline Hyclate 100 mg/ (Sodium Chloride) 100 mls @ 100 mls/hr IVPB Q12 DOMONIQUE; Protocol Last Admin: 03/14/18 20:09 Dose: 100 mls/hr Morphine Sulfate (Morphine) 2 mg IVP Q4 PRN PRN Reason: Pain, severe (8-10) Last Admin: 03/14/18 17:01 Dose: 2 mg - Labs Labs: 03/14/18 05:52 03/14/18 05:52
[2018-03-15 05:41] LABS: BASO % 0.2 % (0.0-2.0); HEMOGLOBIN 13.4 g/dL (12.0-18.0); LYMPH # 1.3 K/uL (1.0-4.3); LYMPH % 8.4 % (20.0-40.0); MEAN CELL VOLUME 88.6 fl (80.0-94.0); MEAN CORPUSCULAR HEMOGLOBIN 29.5 pg (27.0-31.0); MEAN CORPUSCULAR HGB CONC 33.3 g/dL (33.0-37.0); MEAN PLATELET VOLUME 8.4 fl (7.2-11.7); MONO % 6.9 % (0.0-10.0); NEUT # 12.8 K/uL (1.8-7.0); NEUT % 84.5 % (50.0-75.0); PLATELET COUNT 217 K/uL (130-400); RBC 4.56 Mil/uL (4.40-5.90); RED CELL DISTRIBUTION WIDTH 14.1 % (11.5-14.5); WHITE BLOOD COUNT 15.2 K/uL (4.8-10.8)
[2018-03-15 05:47] LABS: BLOOD UREA NITROGEN 10 mg/dl (9-20); CALCIUM 8.7 mg/dL (8.4-10.2); GFR NON-AFRICAN AMERICAN > 60
--- NOTE | 2018-03-15 06:17 | CON ---
DATE: 03/14/2018 TIME: Approximately 6 p.m. CHIEF COMPLAINT: Left testicular pain. HISTORY OF PRESENT ILLNESS: The patient was in the [place] ER the week prior to admission and treated with Cipro for left epididymitis. He says his left testicular swelling did not improve, and he noted a fever at home. The patient has been afebrile in the hospital. He denies any difficulty in urination. He states he voids well and has no burning and dysuria. The patient has a history of EtOH use. REVIEW OF SYSTEMS: RESPIRATORY: Noncontributory. GI: Noncontributory. MUSCULOSKELETAL: Noncontributory. : The patient has a history of epididymitis in the past. He denies any instrumentation or previous surgery. NEUROLOGICAL: Noncontributory. ORTHOPEDIC: Noncontributory. SOCIAL AND FAMILY HISTORY: The patient is a heavy drinker. He lives in [place]. His contact center analyst is his child. He appears to have been . ASSESSMENT AND PLAN: I have also reviewed the laboratory data, CAT scan, and scrotal ultrasound. Based on these findings, the acute diagnosis is left epididymo-orchitis, resistant to Cipro. Suggests the following: I would suggest this patient have an Infectious Disease consult for powerful broad-spectrum antibiotics. Appropriate urine cultures should be obtained as well as blood cultures. These should determine the organism and appropriate sensitivities. The patient should be kept on sensitive antibiotics for 10 to 14 days. No further therapy at this time. Jose Mobley MD
[2018-03-15] MEDS ORDERED: Influenza Vaccine 60 MCG/0.5 ML SYR (3 yr & up) IM ONE (08:54)
[2018-03-15] MEDS: Meropenem 1 GM in Sodium Chloride 0.9% 100 ML IVPB SCH ×3 (09:08→17:31)
--- NOTE | 2018-03-15 09:25 | CP.PCM.PN ---
Subjective - Date & Time of Evaluation Date of Evaluation: 03/15/18 Time of Evaluation: 09:25 - Subjective Subjective: SCROTAL PAIN AND EDEMA IMPROVING AFEBRILE Objective - Vital Signs/Intake and Output Vital Signs (last 24 hours): Temp Pulse Resp BP Pulse Ox 97.8 F 81 20 114/78 96 03/15/18 08:23 03/15/18 08:23 03/15/18 08:23 03/15/18 08:23 03/15/18 08:23 Intake and Output: 03/15/18 03/15/18 06:59 18:59 Intake Total 1004 Output Total 600 Balance 404 - Medications Medications: Current Medications Acetaminophen (Tylenol 325mg Tab) 650 mg PO Q4 PRN PRN Reason: Fever >100.4 F Last Admin: 03/14/18 23:56 Dose: 650 mg Dextrose/Sodium Chloride (Dextrose 5%/0.45% Ns 1000 Ml) 1,000 mls @ 42 mls/hr IV .[id number] DOMONIQUE Stop: 03/15/18 10:40 Last Admin: 03/14/18 11:31 Dose: 42 mls/hr Meropenem 1 gm/ Sodium (Chloride) 100 mls @ 100 mls/hr IVPB Q8 DOMONIQUE; Protocol Last Admin: 03/15/18 09:08 Dose: 100 mls/hr Doxycycline Hyclate 100 mg/ (Sodium Chloride) 100 mls @ 100 mls/hr IVPB Q12 DOMONIQUE; Protocol Last Admin: 03/15/18 09:08 Dose: 100 mls/hr Influenza Virus Vaccine (Fluzone Quad [id number]) 60 mcg IM .ONCE ONE Stop: 03/15/18 08:55 Morphine Sulfate (Morphine) 2 mg IVP Q4 PRN PRN Reason: Pain, severe (8-10) Last Admin: 03/15/18 09:12 Dose: 2 mg - Labs Labs: 03/15/18 04:20 03/15/18 04:20 - Constitutional Appears: No Acute Distress - Head Exam Head Exam: ATRAUMATIC, NORMAL INSPECTION, NORMOCEPHALIC - Eye Exam Eye Exam: EOMI, Normal appearance, PERRL Pupil Exam: NORMAL ACCOMODATION, PERRL - ENT Exam ENT Exam: Mucous Membranes Moist, Normal Exam - Neck Exam Neck Exam: Full ROM, Normal Inspection. absent: Lymphadenopathy - Respiratory Exam Respiratory Exam: Clear to Ausculation Bilateral, NORMAL BREATHING PATTERN - Cardiovascular Exam Cardiovascular Exam: REGULAR RHYTHM, +S1, +S2. absent: Murmur - GI/Abdominal Exam GI & Abdominal Exam: Soft, Normal Bowel Sounds. absent: Tenderness - Rectal Exam Rectal Exam: NORMAL INSPECTION - Exam Exam: Scrotal Swelling, Testicular Tenderness - Extremities Exam Extremities Exam: Full ROM, Normal Capillary Refill, Normal Inspection. absent: Joint Swelling, Pedal Edema - Back Exam Back Exam: NORMAL INSPECTION - Neurological Exam Neurological Exam: Alert, Awake, CN II-XII Intact, Normal Gait, Oriented x3 - Psychiatric Exam Psychiatric exam: Normal Affect, Normal Mood - Skin Skin Exam: Dry, Intact, Normal Color, Warm Assessment and Plan - Assessment and Plan (Free Text) Assessment: EPIDYDIMITIS ORCHITIS SEPSIS Plan: CONTINUE IV ANTIBIOTICS AND ANALGESICS WILL DISCUS D/C PLANS WITH ID UROLOGY EVAL APPRECIATED
[2018-03-15 10:16] LABS: LYMPHOCYTE 8 % (20-50); MONOCYTE 4 % (0-10); NEUTROPHIL 88 % (42-75); PLATELET ESTIMATE NORMAL (NORMAL); TOTAL CELLS COUNTED 100
[2018-03-15 10:17] LABS: ANISOCYTOSIS SLIGHT; LARGE PLATELETS PRESENT; MICROCYTOSIS SLIGHT; TEARDROP CELLS SLIGHT
[2018-03-15] MEDS: Dextrose 5%/0.45% NS 1,000 ML IV SCH (11:35)
[2018-03-15 12:15] LABS: HEPATITIS B SURFACE AG Negative (NEGATIVE)
[2018-03-15 12:23] LABS: HEPATITIS A IGM NEGATIVE (NEGATIVE); HEPATITIS B CORE AB NEGATIVE (NEGATIVE)
[2018-03-15 12:32] LABS: HEPATITIS C ANTIBODY NEGATIVE (NEGATIVE)
--- NOTE | 2018-03-15 14:15 | CARD ---
APPROVED REPORT Date of service: 03/15/2018 EXAM: Two-dimensional and M-mode echocardiogram with Doppler and color Doppler. Other Information Quality : GoodRhythm : NSR INDICATION Infection: Bacteremia 2D DIMENSIONS IVSd1.05 (0.7-1.1cm)LVDd5.17 (3.9-5.9cm) LVOT Diameter1.79 (1.8-2.4cm)PWd0.82 (0.7-1.1cm) IVSs0.89 (0.8-1.2cm)LVDs4.28 (2.5-4.0cm) FS (%) 17.2 %PWs1.07 (0.8-1.2cm) M-Mode DIMENSIONS Left Atrium (MM)4.32 (2.5-4.0cm)IVSd0.85 (0.7-1.1cm) Aortic Root3.32 (2.2-3.7cm)LVDd5.85 (4.0-5.6cm) Aortic Cusp Exc.2.12 (1.5-2.0cm)PWd1.00 (0.7-1.1cm) IVSs1.47 cmFS (%) 34 % LVDs3.85 (2.0-3.8cm)PWs1.44 cm Aortic Valve AoV Peak Rdthfzdi511.0cm/sAoV VTI23.6cmAO Peak GR.7mmHg LVOT Peak Ydiepbtt830.0cm/sLVOT VTI20.49cmAO Mean GR.4mmHg EJRSON (VMAX)1.82nm6HHO (VTI)1.13cm2 Mitral Valve MV E Nlnnjqmh74.9cm/sMV DECEL LANC176xyFJ A Dbhpnyou55.3cm/s MV LXK68ayM/A ratio2.3MVA (PHT)3.45cm2 TDI Lateral E' Peak V12.96cm/sMedial E' Peak V13.12cm/sE/Lateral E'7.5 E/Medial E'7.4 Pulmonary Valve PV Peak Aiviznca355.3cm/s LEFT VENTRICLE The left ventricle is normal size. There is normal left ventricular wall thickness. The left ventricular systolic function is normal. The estimated ejection fraction is 55-60% No regional wall motion abnormalities noted.. The left ventricular diastolic function is normal. No left ventricle thrombus noted on this study. There is no ventricular septal defect visualized. There is no left ventricular aneurysm. There is no mass noted in the left ventricle. RIGHT VENTRICLE The right ventricle is normal size. There is normal right ventricular wall thickness. The right ventricular systolic function is normal. ATRIA The left atrium size is normal. The right atrium size is normal. The interatrial septum is intact with no evidence for an atrial septal defect. AORTIC VALVE The aortic valve is normal in structure. No aortic regurgitation is present. There is no aortic valvular stenosis. There is no aortic valvular vegetation. MITRAL VALVE The mitral valve is normal in structure. There is no evidence of mitral valve prolapse. There is no mitral valve stenosis. There is no mitral valve regurgitation noted. TRICUSPID VALVE The tricuspid valve is normal in structure. There is trace tricuspid regurgitation. There is no tricuspid valve prolapse or vegetation. There is no tricuspid valve stenosis. PULMONIC VALVE The pulmonary valve is normal in structure. There is no pulmonic valvular regurgitation. There is no pulmonic valvular stenosis. GREAT VESSELS The aortic root is normal in size. The ascending aorta is normal in size. The pulmonary artery is normal. The IVC is normal in size and collapses >50% with inspiration. PERICARDIAL EFFUSION There is no pericardial effusion. There is no pleural effusion. <Conclusion> The estimated ejection fraction is 55-60% The left ventricular diastolic function is normal. There is trace tricuspid regurgitation. No valvular vegetations found on this study. If clinically indicated consider ZACHARIAH to r/o endocarditis.
[2018-03-16] MEDS: Meropenem 1 GM in Sodium Chloride 0.9% 100 ML IVPB SCH ×3 (00:07→17:50)
[2018-03-16 06:03] LABS: HEMOGLOBIN 12.5 g/dL (12.0-18.0); MEAN CELL VOLUME 88.1 fl (80.0-94.0); MEAN CORPUSCULAR HGB CONC 34.1 g/dL (33.0-37.0); RBC 4.17 Mil/uL (4.40-5.90); RED CELL DISTRIBUTION WIDTH 14.5 % (11.5-14.5)
--- NOTE | 2018-03-16 09:24 | CP.PCM.PN ---
Subjective - Date & Time of Evaluation Date of Evaluation: 03/16/18 Time of Evaluation: 09:26 - Subjective Subjective: STILL HAS SCROTAL PAIN AFEBRILE VSS Objective - Vital Signs/Intake and Output Vital Signs (last 24 hours): Temp Pulse Resp BP Pulse Ox 98.1 F 70 18 110/70 97 03/16/18 08:08 03/16/18 08:08 03/16/18 08:08 03/16/18 08:08 03/16/18 08:08 - Medications Medications: Current Medications Acetaminophen (Tylenol 325mg Tab) 650 mg PO Q4 PRN PRN Reason: Fever >100.4 F Last Admin: 03/15/18 17:30 Dose: 650 mg Meropenem 1 gm/ Sodium (Chloride) 100 mls @ 100 mls/hr IVPB Q8 DOMONIQUE; Protocol Last Admin: 03/16/18 00:07 Dose: 100 mls/hr Doxycycline Hyclate 100 mg/ (Sodium Chloride) 100 mls @ 100 mls/hr IVPB Q12 DOMONIQUE; Protocol Last Admin: 03/15/18 22:00 Dose: 100 mls/hr Morphine Sulfate (Morphine) 2 mg IVP Q4 PRN PRN Reason: Pain, severe (8-10) Last Admin: 03/15/18 09:12 Dose: 2 mg - Labs Labs: 03/16/18 04:20 03/15/18 04:20 - Constitutional Appears: No Acute Distress - Head Exam Head Exam: ATRAUMATIC, NORMAL INSPECTION, NORMOCEPHALIC - Eye Exam Eye Exam: EOMI, Normal appearance, PERRL Pupil Exam: NORMAL ACCOMODATION, PERRL - ENT Exam ENT Exam: Mucous Membranes Moist, Normal Exam - Neck Exam Neck Exam: Full ROM, Normal Inspection. absent: Lymphadenopathy - Respiratory Exam Respiratory Exam: Clear to Ausculation Bilateral, NORMAL BREATHING PATTERN - Cardiovascular Exam Cardiovascular Exam: REGULAR RHYTHM, +S1, +S2. absent: Murmur - GI/Abdominal Exam GI & Abdominal Exam: Soft, Normal Bowel Sounds. absent: Tenderness - Rectal Exam Rectal Exam: NORMAL INSPECTION - Exam Exam: Scrotal Swelling, Testicular Tenderness - Extremities Exam Extremities Exam: Full ROM, Normal Capillary Refill, Normal Inspection. absent: Joint Swelling, Pedal Edema - Back Exam Back Exam: NORMAL INSPECTION - Neurological Exam Neurological Exam: Alert, Awake, CN II-XII Intact, Normal Gait, Oriented x3 - Psychiatric Exam Psychiatric exam: Normal Affect, Normal Mood - Skin Skin Exam: Dry, Intact, Normal Color, Warm Assessment and Plan - Assessment and Plan (Free Text) Assessment: EPIDYDIMITIES ORCHITIS SEPSIS Plan: CONTINUE ANTIBIOTIC RX TRANSFER TO REGULAR FLOOR
[2018-03-17] MEDS: Meropenem 1 GM in Sodium Chloride 0.9% 100 ML IVPB SCH ×2 (01:08→08:47)
--- NOTE | 2018-03-17 09:43 | CP.PCM.PN ---
Subjective - Date & Time of Evaluation Date of Evaluation: 03/17/18 Time of Evaluation: 09:43 - Subjective Subjective: ID note- Pt. seen and examined today. Pt. states he feels better and his scrotal swelling and pain is less. Objective - Vital Signs/Intake and Output Vital Signs (last 24 hours): Temp Pulse Resp BP Pulse Ox 98.1 F 61 18 116/71 96 03/17/18 08:22 03/17/18 08:22 03/17/18 08:22 03/17/18 08:22 03/17/18 08:22 - Medications Medications: Current Medications Acetaminophen (Tylenol 325mg Tab) 650 mg PO Q4 PRN PRN Reason: Fever >100.4 F Last Admin: 03/15/18 17:30 Dose: 650 mg Meropenem 1 gm/ Sodium (Chloride) 100 mls @ 100 mls/hr IVPB Q8 DOMONIQUE; Protocol Last Admin: 03/17/18 08:47 Dose: 100 mls/hr Doxycycline Hyclate 100 mg/ (Sodium Chloride) 100 mls @ 100 mls/hr IVPB Q12 DOMONIQUE; Protocol Last Admin: 03/17/18 08:48 Dose: 100 mls/hr Morphine Sulfate (Morphine) 2 mg IVP Q4 PRN PRN Reason: Pain, severe (8-10) Last Admin: 03/15/18 09:12 Dose: 2 mg - Labs Labs: - Additional Findings Additional findings: - Constitutional Appears: Non-toxic, No Acute Distress - Head Exam Head Exam: ATRAUMATIC - Eye Exam Eye Exam: EOMI, PERRL - ENT Exam ENT Exam: Normal Oropharynx - Neck Exam Neck exam: Positive for: Full Rom - Respiratory Exam Respiratory Exam: Clear to Auscultation Bilateral, NORMAL BREATHING PATTERN - Cardiovascular Exam Cardiovascular Exam: RRR, +S1, +S2 - GI/Abdominal Exam GI & Abdominal Exam: Normal Bowel Sounds, Soft Additional comments: Nt, ND - Exam Exam: Scrotal Swelling Additional comments: scrotal swelling has decreased less erythema as well no discharge, no lesions - Extremities Exam Extremities exam: Positive for: normal inspection - Neurological Exam Neurological exam: Alert, Oriented x 3 Laboratory Results - last 72 hr 03/13/18 03/15/18 03/15/18 17:53 04:20 04:20 WBC 15.2 H RBC 4.56 Hgb 13.4 Hct 40.3 MCV 88.6 MCH 29.5 MCHC 33.3 RDW 14.1 Plt Count 217 MPV 8.4 Neut % (Auto) 84.5 H Lymph % (Auto) 8.4 L [place] % (Auto) 6.9 Eos % (Auto) 0.0 Baso % (Auto) 0.2 Neut # (Auto) 12.8 H Lymph # (Auto) 1.3 [place] # (Auto) 1.0 H Eos # (Auto) 0.0 Baso # (Auto) 0.0 Neutrophils % (Manual) 88 H Lymphocytes % (Manual) 8 L Monocytes % (Manual) 4 Platelet Estimate Normal Large Platelets Present Anisocytosis (manual) Slight Microcytosis (manual) Slight Tear Drop Cells Slight Sodium 135 Potassium 3.9 Chloride 99 Carbon Dioxide 27 Anion Gap 13 BUN 10 Creatinine 0.7 L Est GFR ( Amer) > 60 Est GFR (Non-Af Amer) > 60 Random Glucose 125 H Calcium 8.7 RPR T.pallidum Ab (FTA-ABS) C.trachomatis RNA (TMA) Not detected Hepatitis A IgM Ab Hep Bs Antigen Hep B Core IgM Ab Hepatitis C Antibody HIV-1 Ab Rapid Screen N.gonorrhoeae RNA (TMA) Not detected 03/15/18 03/15/18 03/15/18 04:20 15:57 15:57 WBC RBC Hgb Hct MCV MCH MCHC RDW Plt Count MPV Neut % (Auto) Lymph % (Auto) [place] % (Auto) Eos % (Auto) Baso % (Auto) Neut # (Auto) Lymph # (Auto) [place] # (Auto) Eos # (Auto) Baso # (Auto) Neutrophils % (Manual) Lymphocytes % (Manual) Monocytes % (Manual) Platelet Estimate Large Platelets Anisocytosis (manual) Microcytosis (manual) Tear Drop Cells Sodium Potassium Chloride Carbon Dioxide Anion Gap BUN Creatinine Est GFR ( Amer) Est GFR (Non-Af Amer) Random Glucose Calcium RPR Nonreactive T.pallidum Ab (FTA-ABS) C.trachomatis RNA (TMA) Hepatitis A IgM Ab Negative Hep Bs Antigen Negative Hep B Core IgM Ab Negative Hepatitis C Antibody Negative HIV-1 Ab Rapid Screen Non reactive N.gonorrhoeae RNA (TMA) 03/15/18 03/16/18 03/17/18 15:57 04:20 10:47 WBC 12.0 H 8.1 RBC 4.17 L 4.29 L Hgb 12.5 13.2 Hct 36.7 37.6 MCV 88.1 87.8 MCH 30.0 30.8 MCHC 34.1 35.0 RDW 14.5 14.8 H Plt Count 182 231 MPV Neut % (Auto) Lymph % (Auto) [place] % (Auto) Eos % (Auto) Baso % (Auto) Neut # (Auto) Lymph # (Auto) [place] # (Auto) Eos # (Auto) Baso # (Auto) Neutrophils % (Manual) Lymphocytes % (Manual) Monocytes % (Manual) Platelet Estimate Large Platelets Anisocytosis (manual) Microcytosis (manual) Tear Drop Cells Sodium Potassium Chloride Carbon Dioxide Anion Gap BUN Creatinine Est GFR ( Amer) Est GFR (Non-Af Amer) Random Glucose Calcium RPR T.pallidum Ab (FTA-ABS) Nonreactive C.trachomatis RNA (TMA) Hepatitis A IgM Ab Hep Bs Antigen Hep B Core IgM Ab Hepatitis C Antibody HIV-1 Ab Rapid Screen N.gonorrhoeae RNA (TMA) Microbiology 03/15/18 04:20 Blood-Venous Blood Culture - Preliminary NO GROWTH AFTER 48 HOURS 03/15/18 04:20 Blood-Venous Blood Culture - Preliminary NO GROWTH AFTER 48 HOURS 03/13/18 16:15 Blood-Venous Blood Culture - Preliminary NO GROWTH AFTER 3 DAYS 03/13/18 16:23 Urine,Random Urine Culture - Final Escherichia Coli 03/13/18 16:00 Blood-Venous Blood Culture - Final Escherichia Coli 03/13/18 16:00 Blood-Venous Gram Stain - Final Assessment and Plan (1) Epididymo-orchitis Status: Acute (2) Sepsis Status: Acute (3) Bacteremia due to Gram-negative bacteria Status: Acute - Assessment and Plan (Free Text) Assessment: A/P- 52 year old male admitted with left epididimo-orchitis found to also have e.coli UTI and GNR bacteremia. afebrile leukocytosis -resolved initial blood cx- E.Coli pansensitive urine cx-e.coli repeat blood cx- neg x 2 urine GC/chlmaydia- neg HIV rapid test-negative RPR- negative TTE- negative for vegetations as per report. plan- has been on 4 days of IV meropnem for e.coli bacteremi and UTI. advise to de-escalate today to IV ceftriaxone 2 gram daily for 10 more days. advise to continue with IV doxycycline 100 mg BID day 4. can switch it to po to be continued for 10 more days. all labs and imaging reviewed. all above d/w patient and he verbalizes full understanding of all above and agrees with above plan of care. d/w .
--- NOTE | 2018-03-17 10:51 | CP.PCM.PN ---
Subjective - Date & Time of Evaluation Date of Evaluation: 03/17/18 Time of Evaluation: 10:52 - Subjective Subjective: SCROTAL PAIN AND SWELLING IMPROVING AFEBRILE Objective - Vital Signs/Intake and Output Vital Signs (last 24 hours): Temp Pulse Resp BP Pulse Ox 98.1 F 61 18 116/71 96 03/17/18 08:22 03/17/18 08:22 03/17/18 08:22 03/17/18 08:22 03/17/18 08:22 - Medications Medications: Current Medications Acetaminophen (Tylenol 325mg Tab) 650 mg PO Q4 PRN PRN Reason: Fever >100.4 F Last Admin: 03/15/18 17:30 Dose: 650 mg Meropenem 1 gm/ Sodium (Chloride) 100 mls @ 100 mls/hr IVPB Q8 DOMONIQUE; Protocol Last Admin: 03/17/18 08:47 Dose: 100 mls/hr Doxycycline Hyclate 100 mg/ (Sodium Chloride) 100 mls @ 100 mls/hr IVPB Q12 DOMONIQUE; Protocol Last Admin: 03/17/18 08:48 Dose: 100 mls/hr Morphine Sulfate (Morphine) 2 mg IVP Q4 PRN PRN Reason: Pain, severe (8-10) Last Admin: 03/15/18 09:12 Dose: 2 mg - Labs Labs: 03/16/18 04:20 03/15/18 04:20 - Constitutional Appears: No Acute Distress - Head Exam Head Exam: ATRAUMATIC, NORMAL INSPECTION, NORMOCEPHALIC - Eye Exam Eye Exam: EOMI, Normal appearance, PERRL Pupil Exam: NORMAL ACCOMODATION, PERRL - ENT Exam ENT Exam: Mucous Membranes Moist, Normal Exam - Neck Exam Neck Exam: Full ROM, Normal Inspection. absent: Lymphadenopathy - Respiratory Exam Respiratory Exam: Clear to Ausculation Bilateral, NORMAL BREATHING PATTERN - Cardiovascular Exam Cardiovascular Exam: REGULAR RHYTHM, +S1, +S2. absent: Murmur - GI/Abdominal Exam GI & Abdominal Exam: Soft, Normal Bowel Sounds. absent: Tenderness - Rectal Exam Rectal Exam: NORMAL INSPECTION - Exam Exam: Scrotal Swelling, Testicular Tenderness - Extremities Exam Extremities Exam: Full ROM, Normal Capillary Refill, Normal Inspection. absent: Joint Swelling, Pedal Edema - Back Exam Back Exam: NORMAL INSPECTION - Neurological Exam Neurological Exam: Alert, Awake, CN II-XII Intact, Normal Gait, Oriented x3 - Psychiatric Exam Psychiatric exam: Normal Affect, Normal Mood - Skin Skin Exam: Dry, Intact, Normal Color, Warm Assessment and Plan - Assessment and Plan (Free Text) Assessment: EPIDIDYMO ORCHITIS ECOLI UTI Plan: CONTINUE IV ANTIBIOTICS WILL DISCUS DISPOSITION WITH ID
[2018-03-17 11:09] LABS: HEMOGLOBIN 13.2 g/dL (12.0-18.0); MEAN CELL VOLUME 87.8 fl (80.0-94.0); MEAN CORPUSCULAR HEMOGLOBIN 30.8 pg (27.0-31.0); RBC 4.29 Mil/uL (4.40-5.90); RED CELL DISTRIBUTION WIDTH 14.8 % (11.5-14.5); WHITE BLOOD COUNT 8.1 K/uL (4.8-10.8)
--- NOTE | 2018-03-17 11:09 | PQF ---
PROVIDER RESPONSE TEXT: ECOLI SEPSIS REVIEWER QUERY TEXT: Documentation Clarification Your help is requested in clarifying the following clinical documentation, if you can please further specify in the medical record and discharge summary. Please clarify the causative organism and etiology causing the Sepsis. I am unable to code from the c ultures. Urine CS and BLOOD CS growing E Coli. The patient's Clinical Indicators include: Admitted with fever, chills and testicular pain. WBC 11.5-> 16.8 L shift, UA Nitrates leukocytes and bacteria, Temp max 102.6 Diagnoses include: Acute epididymitis, orchitis, sepsis Rx: IVAB Query created by: Diamond Moore on 03/16/2018 10:05 AM Electronically signed by: Geovani Diaz MD 03/17/2018 11:06 AM
[2018-03-17] MEDS ORDERED: Promethazine DM 6.25 mg-15 mg/5 ml Syrup PO PRN (21:16)
[2018-03-17] MEDS ORDERED: Benzocaine/Menthol (Cepacol) Lozenge PO PRN (21:21)
--- NOTE | 2018-03-18 08:49 | CP.PCM.PN ---
Subjective - Date & Time of Evaluation Date of Evaluation: 03/18/18 Time of Evaluation: 08:56 - Subjective Subjective: CLINICALLY IMPROVING SCROTAL PAIN LESS Objective - Vital Signs/Intake and Output Vital Signs (last 24 hours): Temp Pulse Resp BP Pulse Ox 97.6 F 61 22 106/81 95 03/18/18 08:36 03/18/18 08:36 03/18/18 08:36 03/18/18 08:36 03/18/18 08:36 - Medications Medications: Current Medications Acetaminophen (Tylenol 325mg Tab) 650 mg PO Q4 PRN PRN Reason: Fever >100.4 F Last Admin: 03/15/18 17:30 Dose: 650 mg Benzocaine/Menthol (Cepacol Sore Throat) 1 hi PO Q2 PRN PRN Reason: Sore Throat Last Admin: 03/17/18 23:27 Dose: 1 hi Doxycycline Hyclate 100 mg/ (Sodium Chloride) 100 mls @ 100 mls/hr IVPB Q12 DOMONIQUE; Protocol Last Admin: 03/17/18 21:38 Dose: 100 mls/hr Ceftriaxone Sodium 2 gm/ (Sodium Chloride) 100 mls @ 100 mls/hr IVPB DAILY DOMONIQUE; Protocol Morphine Sulfate (Morphine) 2 mg IVP Q4 PRN PRN Reason: Pain, severe (8-10) Last Admin: 03/15/18 09:12 Dose: 2 mg Promethazine HCl/Dextromethorphan (Phenergan Dm Syrup) 5 ml PO Q4 PRN PRN Reason: Cough - Labs Labs: 03/17/18 10:47 03/15/18 04:20 - Constitutional Appears: No Acute Distress - Head Exam Head Exam: ATRAUMATIC, NORMAL INSPECTION, NORMOCEPHALIC - Eye Exam Eye Exam: EOMI, Normal appearance, PERRL Pupil Exam: NORMAL ACCOMODATION, PERRL - ENT Exam ENT Exam: Mucous Membranes Moist, Normal Exam - Neck Exam Neck Exam: Full ROM, Normal Inspection. absent: Lymphadenopathy - Respiratory Exam Respiratory Exam: Clear to Ausculation Bilateral, NORMAL BREATHING PATTERN - Cardiovascular Exam Cardiovascular Exam: REGULAR RHYTHM, +S1, +S2. absent: Murmur - GI/Abdominal Exam GI & Abdominal Exam: Soft, Normal Bowel Sounds. absent: Tenderness - Rectal Exam Rectal Exam: NORMAL INSPECTION - Exam Exam: Scrotal Swelling, Testicular Tenderness - Extremities Exam Extremities Exam: Full ROM, Normal Capillary Refill, Normal Inspection. absent: Joint Swelling, Pedal Edema - Back Exam Back Exam: NORMAL INSPECTION - Neurological Exam Neurological Exam: Alert, Awake, CN II-XII Intact, Normal Gait, Oriented x3 - Psychiatric Exam Psychiatric exam: Normal Affect, Normal Mood - Skin Skin Exam: Dry, Intact, Normal Color, Warm Assessment and Plan - Assessment and Plan (Free Text) Assessment: EPIDIDYMO-ORCHITIS ECOLI SEPSIS AND UTI Plan: CONTINUE IV ANTIBIOTICS TRANSFER TO TCU FOR IV ANTIBIOTICS X 10 MORE DAYS PER ID
[2018-03-18] MEDS: cefTRIAXone 2 GM in Sodium Chloride 0.9% 100 ML IVPB SCH (09:10)
--- NOTE | 2018-03-19 08:19 | CP.PCM.PN ---
Subjective - Date & Time of Evaluation Date of Evaluation: 03/19/18 Time of Evaluation: 08:19 - Subjective Subjective: CONTINUES TO IMPROVE CLINICALLY Objective - Vital Signs/Intake and Output Vital Signs (last 24 hours): Temp Pulse Resp BP Pulse Ox 97.5 F L 66 19 107/71 99 03/19/18 08:09 03/19/18 08:09 03/19/18 08:09 03/19/18 08:09 03/19/18 08:09 - Medications Medications: Current Medications Acetaminophen (Tylenol 325mg Tab) 650 mg PO Q4 PRN PRN Reason: Fever >100.4 F Last Admin: 03/15/18 17:30 Dose: 650 mg Benzocaine/Menthol (Cepacol Sore Throat) 1 hi PO Q2 PRN PRN Reason: Sore Throat Last Admin: 03/17/18 23:27 Dose: 1 hi Doxycycline Hyclate 100 mg/ (Sodium Chloride) 100 mls @ 100 mls/hr IVPB Q12 S [facility]; Protocol Last Admin: 03/18/18 21:54 Dose: 100 mls/hr Ceftriaxone Sodium 2 gm/ (Sodium Chloride) 100 mls @ 100 mls/hr IVPB DAILY DOMONIQUE; Protocol Last Admin: 03/18/18 09:10 Dose: 100 mls/hr Morphine Sulfate (Morphine) 2 mg IVP Q4 PRN PRN Reason: Pain, severe (8-10) Last Admin: 03/15/18 09:12 Dose: 2 mg Promethazine HCl/Dextromethorphan (Phenergan Dm Syrup) 5 ml PO Q4 PRN PRN Reason: Cough - Labs Labs: 03/17/18 10:47 03/15/18 04:20 - Constitutional Appears: No Acute Distress - Head Exam Head Exam: ATRAUMATIC, NORMAL INSPECTION, NORMOCEPHALIC - Eye Exam Eye Exam: EOMI, Normal appearance, PERRL Pupil Exam: NORMAL ACCOMODATION, PERRL - ENT Exam ENT Exam: Mucous Membranes Moist, Normal Exam - Neck Exam Neck Exam: Full ROM, Normal Inspection. absent: Lymphadenopathy - Respiratory Exam Respiratory Exam: Clear to Ausculation Bilateral, NORMAL BREATHING PATTERN - Cardiovascular Exam Cardiovascular Exam: REGULAR RHYTHM, +S1, +S2. absent: Murmur - GI/Abdominal Exam GI & Abdominal Exam: Soft, Normal Bowel Sounds. absent: Tenderness - Rectal Exam Rectal Exam: NORMAL INSPECTION - Exam Exam: Scrotal Swelling, Testicular Tenderness - Extremities Exam Extremities Exam: Full ROM, Normal Capillary Refill, Normal Inspection. absent: Joint Swelling, Pedal Edema - Back Exam Back Exam: NORMAL INSPECTION - Neurological Exam Neurological Exam: Alert, Awake, CN II-XII Intact, Normal Gait, Oriented x3 - Psychiatric Exam Psychiatric exam: Normal Affect, Normal Mood - Skin Skin Exam: Dry, Intact, Normal Color, Warm Assessment and Plan - Assessment and Plan (Free Text) Assessment: EPIDIDIMO-ORCHITIS SEPSIS Plan: CONTINUE IV ANTIBIOTICS PER ID SUGGESTION
--- NOTE | 2018-03-19 09:10 | CP.PCM.PN ---
Subjective - Date & Time of Evaluation Date of Evaluation: 03/19/18 Time of Evaluation: 09:10 - Subjective Subjective: ID Note- Pt. states he feels much better. scrotal pain is much better as per pt. Objective - Vital Signs/Intake and Output Vital Signs (last 24 hours): Temp Pulse Resp BP Pulse Ox 97.5 F L 66 19 107/71 99 03/19/18 08:09 03/19/18 08:09 03/19/18 08:09 03/19/18 08:09 03/19/18 08:09 - Medications Medications: Current Medications Acetaminophen (Tylenol 325mg Tab) 650 mg PO Q4 PRN PRN Reason: Fever >100.4 F Last Admin: 03/15/18 17:30 Dose: 650 mg Benzocaine/Menthol (Cepacol Sore Throat) 1 hi PO Q2 PRN PRN Reason: Sore Throat Last Admin: 03/17/18 23:27 Dose: 1 hi Doxycycline Hyclate 100 mg/ (Sodium Chloride) 100 mls @ 100 mls/hr IVPB Q12 DOMONIQUE; Protocol Last Admin: 03/19/18 08:21 Dose: 100 mls/hr Ceftriaxone Sodium 2 gm/ (Sodium Chloride) 100 mls @ 100 mls/hr IVPB DAILY DOMONIQUE; Protocol Last Admin: 03/18/18 09:10 Dose: 100 mls/hr Morphine Sulfate (Morphine) 2 mg IVP Q4 PRN PRN Reason: Pain, severe (8-10) Last Admin: 03/15/18 09:12 Dose: 2 mg Promethazine HCl/Dextromethorphan (Phenergan Dm Syrup) 5 ml PO Q4 PRN PRN Reason: Cough - Labs Labs: - Additional Findings Additional findings: - Constitutional Appears: Non-toxic, No Acute Distress - Head Exam Head Exam: ATRAUMATIC - Eye Exam Eye Exam: EOMI, PERRL - ENT Exam ENT Exam: Normal Oropharynx - Neck Exam Neck exam: Positive for: Full Rom - Respiratory Exam Respiratory Exam: Clear to Auscultation Bilateral, NORMAL BREATHING PATTERN - Cardiovascular Exam Cardiovascular Exam: RRR, +S1, +S2 - GI/Abdominal Exam GI & Abdominal Exam: Normal Bowel Sounds, Soft Additional comments: Nt, ND - Exam Exam: Scrotal Swelling Additional comments: scrotal swelling much decreased no erythema anymore no discharge, no lesions - Extremities Exam Extremities exam: Positive for: normal inspection - Neurological Exam Neurological exam: Alert, Oriented x 3 Laboratory Results - last 72 hr 03/13/18 03/15/18 03/17/18 17:53 15:57 10:47 WBC 8.1 RBC 4.29 L Hgb 13.2 Hct 37.6 MCV 87.8 MCH 30.8 MCHC 35.0 RDW 14.8 H Plt Count 231 T.pallidum Ab (FTA-ABS) Nonreactive C.trachomatis RNA (TMA) Not detected N.gonorrhoeae RNA (TMA) Not detected Microbiology 03/16/18 17:25 Urine,Clean Catch Urine Culture - Final No Growth (<1,000 CFU/ML) 03/15/18 04:20 Blood-Venous Blood Culture - Preliminary NO GROWTH AFTER 4 DAYS 03/15/18 04:20 Blood-Venous Blood Culture - Preliminary NO GROWTH AFTER 4 DAYS 03/13/18 16:15 Blood-Venous Blood Culture - Final NO GROWTH AFTER 5 DAYS 03/13/18 16:15 Blood-Venous Gram Stain - Final TEST NOT PERFORMED 03/13/18 16:23 Urine,Random Urine Culture - Final Escherichia Coli 03/13/18 16:00 Blood-Venous Blood Culture - Final Escherichia Coli 03/13/18 16:00 Blood-Venous Gram Stain - Final Assessment and Plan (1) Epididymo-orchitis Status: Acute (2) Sepsis Status: Acute (3) Bacteremia due to Gram-negative bacteria Status: Acute - Assessment and Plan (Free Text) Assessment: A/P- 52 year old male admitted with left epididimo-orchitis found to also have e.coli UTI and GNR bacteremia. afebrile leukocytosis -resolved initial blood cx- E.Coli pansensitive urine cx-e.coli repeat blood cx- neg x 2 urine GC/chlmaydia- neg HIV rapid test-negative RPR- negative TTE- negative for vegetations as per report. plan- completed 4 days of IV meropnem for e.coli bacteremi and UTI. was de-escalated to ceftriaxone daily day #2 advise to continue with IV ceftriaxone for 8 more days. has completed 6 days of IV doxyxycline. can switch it to po to be continued for 8 more days. All above d/w patient and with [employer]
[2018-03-19] MEDS: cefTRIAXone 2 GM in Sodium Chloride 0.9% 100 ML IVPB SCH (09:53)
--- NOTE | 2018-03-20 10:27 | CP.PCM.PN ---
Subjective - Date & Time of Evaluation Date of Evaluation: 03/20/18 Time of Evaluation: 10:27 - Subjective Subjective: AFEBRILE SCROTAL PAIN LESS Objective - Vital Signs/Intake and Output Vital Signs (last 24 hours): Temp Pulse Resp BP Pulse Ox 97.5 F L 68 20 92/53 L 97 03/20/18 08:23 03/20/18 08:23 03/20/18 08:23 03/20/18 08:23 03/20/18 08:23 - Medications Medications: Current Medications Acetaminophen (Tylenol 325mg Tab) 650 mg PO Q4 PRN PRN Reason: Fever >100.4 F Last Admin: 03/15/18 17:30 Dose: 650 mg Benzocaine/Menthol (Cepacol Sore Throat) 1 hi PO Q2 PRN PRN Reason: Sore Throat Last Admin: 03/17/18 23:27 Dose: 1 hi Doxycycline Hyclate 100 mg/ (Sodium Chloride) 100 mls @ 100 mls/hr IVPB Q12 DOMONIQUE; Protocol Last Admin: 03/20/18 08:47 Dose: 100 mls/hr Ceftriaxone Sodium 1 gm/ (Sodium Chloride) 100 mls @ 100 mls/hr IVPB DAILY DOMONIQUE; Protocol Last Admin: 03/20/18 08:47 Dose: 100 mls/hr Morphine Sulfate (Morphine) 2 mg IVP Q4 PRN PRN Reason: Pain, severe (8-10) Last Admin: 03/15/18 09:12 Dose: 2 mg Promethazine HCl/Dextromethorphan (Phenergan Dm Syrup) 5 ml PO Q4 PRN PRN Reason: Cough - Labs Labs: 03/17/18 10:47 03/15/18 04:20 - Constitutional Appears: No Acute Distress - Head Exam Head Exam: ATRAUMATIC, NORMAL INSPECTION, NORMOCEPHALIC - Eye Exam Eye Exam: EOMI, Normal appearance, PERRL Pupil Exam: NORMAL ACCOMODATION, PERRL - ENT Exam ENT Exam: Mucous Membranes Moist, Normal Exam - Neck Exam Neck Exam: Full ROM, Normal Inspection. absent: Lymphadenopathy - Respiratory Exam Respiratory Exam: Clear to Ausculation Bilateral, NORMAL BREATHING PATTERN - Cardiovascular Exam Cardiovascular Exam: REGULAR RHYTHM, +S1, +S2. absent: Murmur - GI/Abdominal Exam GI & Abdominal Exam: Soft, Normal Bowel Sounds. absent: Tenderness - Rectal Exam Rectal Exam: NORMAL INSPECTION - Exam Exam: Scrotal Swelling, Testicular Tenderness - Extremities Exam Extremities Exam: Full ROM, Normal Capillary Refill, Normal Inspection. absent: Joint Swelling, Pedal Edema - Back Exam Back Exam: NORMAL INSPECTION - Neurological Exam Neurological Exam: Alert, Awake, CN II-XII Intact, Normal Gait, Oriented x3 - Psychiatric Exam Psychiatric exam: Normal Affect, Normal Mood - Skin Skin Exam: Dry, Intact, Normal Color, Warm Assessment and Plan - Assessment and Plan (Free Text) Assessment: SEPSIS EPIDIDIMO-ORCHITIS Plan: CONTINUE IV ANTIBIOTICS PER ID RECOMMENDATION
--- NOTE | 2018-03-21 11:44 | CP.PCM.PN ---
Subjective - Date & Time of Evaluation Date of Evaluation: 03/21/18 Time of Evaluation: 11:44 - Subjective Subjective: afebrile continues to improve clinically scrotal swelling ang and pain less Objective - Vital Signs/Intake and Output Vital Signs (last 24 hours): Temp Pulse Resp BP Pulse Ox 98.3 F 64 20 115/71 99 03/21/18 08:01 03/21/18 08:01 03/21/18 08:01 03/21/18 08:01 03/21/18 08:01 Intake and Output: 03/21/18 03/21/18 06:59 18:59 Output Total 600 Balance -600 - Medications Medications: Current Medications Acetaminophen (Tylenol 325mg Tab) 650 mg PO Q4 PRN PRN Reason: Fever >100.4 F Last Admin: 03/15/18 17:30 Dose: 650 mg Benzocaine/Menthol (Cepacol Sore Throat) 1 hi PO Q2 PRN PRN Reason: Sore Throat Last Admin: 03/17/18 23:27 Dose: 1 hi Doxycycline Hyclate 100 mg/ (Sodium Chloride) 100 mls @ 100 mls/hr IVPB Q12 DOMONIQUE; Protocol Last Admin: 03/21/18 08:03 Dose: 100 mls/hr Ceftriaxone Sodium 1 gm/ (Sodium Chloride) 100 mls @ 100 mls/hr IVPB DAILY DOMONIQUE; Protocol Last Admin: 03/21/18 10:22 Dose: 100 mls/hr Promethazine HCl/Dextromethorphan (Phenergan Dm Syrup) 5 ml PO Q4 PRN PRN Reason: Cough - Labs Labs: 03/17/18 10:47 03/15/18 04:20 - Constitutional Appears: Chronically Ill - Head Exam Head Exam: ATRAUMATIC, NORMAL INSPECTION, NORMOCEPHALIC - Eye Exam Eye Exam: EOMI, Normal appearance, PERRL Pupil Exam: NORMAL ACCOMODATION, PERRL - ENT Exam ENT Exam: Mucous Membranes Moist, Normal Exam - Neck Exam Neck Exam: Full ROM, Normal Inspection. absent: Lymphadenopathy - Respiratory Exam Respiratory Exam: Clear to Ausculation Bilateral, NORMAL BREATHING PATTERN - Cardiovascular Exam Cardiovascular Exam: REGULAR RHYTHM, +S1, +S2. absent: Murmur - GI/Abdominal Exam GI & Abdominal Exam: Soft, Normal Bowel Sounds. absent: Tenderness - Rectal Exam Rectal Exam: NORMAL INSPECTION - Exam Exam: Scrotal Swelling, Testicular Tenderness - Extremities Exam Extremities Exam: Full ROM, Normal Capillary Refill, Normal Inspection. absent: Joint Swelling, Pedal Edema - Back Exam Back Exam: NORMAL INSPECTION - Neurological Exam Neurological Exam: Alert, Awake, CN II-XII Intact, Normal Gait, Oriented x3 - Psychiatric Exam Psychiatric exam: Normal Affect, Normal Mood - Skin Skin Exam: Dry, Intact, Normal Color, Warm Assessment and Plan - Assessment and Plan (Free Text) Assessment: sepsis --improving epidimo-ochitis improving Plan: continue antibiotic rx
--- NOTE | 2018-03-22 09:13 | CP.PCM.PN ---
Subjective - Date & Time of Evaluation Date of Evaluation: 03/22/18 Time of Evaluation: 09:13 - Subjective Subjective: clinically improving afebrile scrotal pain and edema less Objective - Vital Signs/Intake and Output Vital Signs (last 24 hours): Temp Pulse Resp BP Pulse Ox 97.8 F 59 L 20 98/62 L 98 03/22/18 07:51 03/22/18 07:51 03/22/18 07:51 03/22/18 07:51 03/22/18 07:51 Intake and Output: 03/22/18 03/22/18 06:59 18:59 Output Total 600 Balance -600 - Medications Medications: Current Medications Acetaminophen (Tylenol 325mg Tab) 650 mg PO Q4 PRN PRN Reason: Fever >100.4 F Last Admin: 03/15/18 17:30 Dose: 650 mg Benzocaine/Menthol (Cepacol Sore Throat) 1 hi PO Q2 PRN PRN Reason: Sore Throat Last Admin: 03/17/18 23:27 Dose: 1 hi Doxycycline Hyclate 100 mg/ (Sodium Chloride) 100 mls @ 100 mls/hr IVPB Q12 DOMONIQUE; Protocol Last Admin: 03/21/18 21:06 Dose: 100 mls/hr Ceftriaxone Sodium 1 gm/ (Sodium Chloride) 100 mls @ 100 mls/hr IVPB DAILY DOMONIQUE; Protocol Last Admin: 03/21/18 10:22 Dose: 100 mls/hr Promethazine HCl/Dextromethorphan (Phenergan Dm Syrup) 5 ml PO Q4 PRN PRN Reason: Cough - Labs Labs: 03/17/18 10:47 03/15/18 04:20 - Constitutional Appears: No Acute Distress - Head Exam Head Exam: ATRAUMATIC, NORMAL INSPECTION, NORMOCEPHALIC - Eye Exam Eye Exam: EOMI, Normal appearance, PERRL Pupil Exam: NORMAL ACCOMODATION, PERRL - ENT Exam ENT Exam: Mucous Membranes Moist, Normal Exam - Neck Exam Neck Exam: Full ROM, Normal Inspection. absent: Lymphadenopathy - Respiratory Exam Respiratory Exam: Clear to Ausculation Bilateral, NORMAL BREATHING PATTERN - Cardiovascular Exam Cardiovascular Exam: REGULAR RHYTHM, +S1, +S2. absent: Murmur - GI/Abdominal Exam GI & Abdominal Exam: Soft, Normal Bowel Sounds. absent: Tenderness - Rectal Exam Rectal Exam: NORMAL INSPECTION - Exam Exam: Scrotal Swelling, Testicular Tenderness - Extremities Exam Extremities Exam: Full ROM, Normal Capillary Refill, Normal Inspection. absent: Joint Swelling, Pedal Edema - Back Exam Back Exam: NORMAL INSPECTION - Neurological Exam Neurological Exam: Alert, Awake, CN II-XII Intact, Normal Gait, Oriented x3 - Psychiatric Exam Psychiatric exam: Normal Affect, Normal Mood - Skin Skin Exam: Dry, Intact, Normal Color, Warm Assessment and Plan - Assessment and Plan (Free Text) Assessment: epididimo-orchitis sepsis Plan: continue iv antibiotic rx d/c planning by this weekend if stable
--- NOTE | 2018-03-23 10:05 | CP.PCM.PN ---
Subjective - Date & Time of Evaluation Date of Evaluation: 03/23/18 Time of Evaluation: 10:05 - Subjective Subjective: CLINICALLY STABLE NO NEW CLINICAL; FINDINGS WILL CONTINUE CURRENT RX WILL D/C THIS WEEK [id number] STABLE Objective - Vital Signs/Intake and Output Vital Signs (last 24 hours): Temp Pulse Resp BP Pulse Ox 97.7 F 67 20 96/58 L 97 03/23/18 07:58 03/23/18 07:58 03/23/18 07:58 03/23/18 07:58 03/23/18 07:58 - Medications Medications: Current Medications Acetaminophen (Tylenol 325mg Tab) 650 mg PO Q4 PRN PRN Reason: Fever >100.4 F Last Admin: 03/15/18 17:30 Dose: 650 mg Benzocaine/Menthol (Cepacol Sore Throat) 1 hi PO Q2 PRN PRN Reason: Sore Throat Last Admin: 03/17/18 23:27 Dose: 1 hi Doxycycline Hyclate 100 mg/ (Sodium Chloride) 100 mls @ 100 mls/hr IVPB Q12 DOMONIQUE; Protocol Last Admin: 03/22/18 21:29 Dose: 100 mls/hr Ceftriaxone Sodium 1 gm/ (Sodium Chloride) 100 mls @ 100 mls/hr IVPB DAILY DOMONIQUE; Protocol Last Admin: 03/22/18 10:35 Dose: 100 mls/hr Promethazine HCl/Dextromethorphan (Phenergan Dm Syrup) 5 ml PO Q4 PRN PRN Reason: Cough - Labs Labs: 03/17/18 10:47 03/15/18 04:20
--- NOTE | 2018-03-24 10:32 | CP.PCM.PN ---
Subjective - Date & Time of Evaluation Date of Evaluation: 03/24/18 Time of Evaluation: 10:32 - Subjective Subjective: CONTINUES TO IMPROVE CLINICALLY AFEBRILE SCROTAL PAIN IMPROVED Objective - Vital Signs/Intake and Output Vital Signs (last 24 hours): Temp Pulse Resp BP Pulse Ox 97.8 F 78 20 95/55 L 99 03/24/18 08:01 03/24/18 08:01 03/24/18 08:01 03/24/18 08:01 03/24/18 08:01 - Medications Medications: Current Medications Acetaminophen (Tylenol 325mg Tab) 650 mg PO Q4 PRN PRN Reason: Fever >100.4 F Last Admin: 03/15/18 17:30 Dose: 650 mg Benzocaine/Menthol (Cepacol Sore Throat) 1 hi PO Q2 PRN PRN Reason: Sore Throat Last Admin: 03/17/18 23:27 Dose: 1 hi Doxycycline Hyclate 100 mg/ (Sodium Chloride) 100 mls @ 100 mls/hr IVPB Q12 DOMONIQUE; Protocol Last Admin: 03/24/18 08:22 Dose: 100 mls/hr Ceftriaxone Sodium 1 gm/ (Sodium Chloride) 100 mls @ 100 mls/hr IVPB DAILY DOMONIQUE; Protocol Last Admin: 03/24/18 08:22 Dose: 100 mls/hr Promethazine HCl/Dextromethorphan (Phenergan Dm Syrup) 5 ml PO Q4 PRN PRN Reason: Cough - Labs Labs: 03/17/18 10:47 03/15/18 04:20 - Constitutional Appears: No Acute Distress - Head Exam Head Exam: ATRAUMATIC, NORMAL INSPECTION, NORMOCEPHALIC - Eye Exam Eye Exam: EOMI, Normal appearance, PERRL Pupil Exam: NORMAL ACCOMODATION, PERRL - ENT Exam ENT Exam: Mucous Membranes Moist, Normal Exam - Neck Exam Neck Exam: Full ROM, Normal Inspection. absent: Lymphadenopathy - Respiratory Exam Respiratory Exam: Clear to Ausculation Bilateral, NORMAL BREATHING PATTERN - Cardiovascular Exam Cardiovascular Exam: REGULAR RHYTHM, +S1, +S2. absent: Murmur - GI/Abdominal Exam GI & Abdominal Exam: Soft, Normal Bowel Sounds. absent: Tenderness - Rectal Exam Rectal Exam: NORMAL INSPECTION - Exam Exam: NORMAL INSPECTION - Extremities Exam Extremities Exam: Full ROM, Normal Capillary Refill, Normal Inspection. absent: Joint Swelling, Pedal Edema - Back Exam Back Exam: NORMAL INSPECTION - Neurological Exam Neurological Exam: Alert, Awake, CN II-XII Intact, Normal Gait, Oriented x3 - Psychiatric Exam Psychiatric exam: Normal Affect, Normal Mood - Skin Skin Exam: Dry, Intact, Normal Color, Warm Assessment and Plan - Assessment and Plan (Free Text) Assessment: EPIDIDIMO-ORCHITIS--IMPROVING SEPSIS--IMPROVING Plan: D/C HOME ON THURSDAY
[2018-03-24] MEDS ORDERED: Pneumococcal 23-Valent Vaccine IM ONE (17:19)
[2018-03-24] MEDS ORDERED: Influenza Vaccine 60 MCG/0.5 ML SYR (3 yr & up) IM ONE (17:29)
[2018-03-24] MEDS ORDERED: Influenza Vaccine (5 YR UP)/PF 60 MCG/0.5 ML SYR IM ONE (17:36)
--- NOTE | 2018-03-25 09:26 | CP.PCM.PN ---
Subjective - Date & Time of Evaluation Date of Evaluation: 03/25/18 Time of Evaluation: 09:26 - Subjective Subjective: NO APPARENT DISTRESS AFEBRILE ALL CULTURES NEGATIVE NO NEW PHYSICAL FINDINGS IMP-SEPSIS RESOLVED EPIDYDIMITIS IMPROVED ORCHITIS IMPROVED PLAN-D/C IN AM IF STABLE Objective - Vital Signs/Intake and Output Vital Signs (last 24 hours): Temp Pulse Resp BP Pulse Ox 98.2 F 78 20 109/65 98 03/25/18 07:55 03/25/18 07:55 03/25/18 07:55 03/25/18 07:55 03/25/18 07:55 - Medications Medications: Current Medications Acetaminophen (Tylenol 325mg Tab) 650 mg PO Q4 PRN PRN Reason: Fever >100.4 F Last Admin: 03/15/18 17:30 Dose: 650 mg Benzocaine/Menthol (Cepacol Sore Throat) 1 hi PO Q2 PRN PRN Reason: Sore Throat Last Admin: 03/17/18 23:27 Dose: 1 hi Doxycycline Hyclate 100 mg/ (Sodium Chloride) 100 mls @ 100 mls/hr IVPB Q12 DOMONIQUE; Protocol Last Admin: 03/25/18 08:43 Dose: 100 mls/hr Ceftriaxone Sodium 1 gm/ (Sodium Chloride) 100 mls @ 100 mls/hr IVPB DAILY DOMONIQUE; Protocol Last Admin: 03/25/18 08:44 Dose: 100 mls/hr Promethazine HCl/Dextromethorphan (Phenergan Dm Syrup) 5 ml PO Q4 PRN PRN Reason: Cough - Labs Labs: 03/17/18 10:47 03/15/18 04:20
[2018-03-26 08:07] VITALS: BP 93/52; PULSE 63; RESP 19; TEMP 97.9; O2SAT 96
--- NOTE | 2018-03-26 13:17 | CP.PCM.DIS ---
Provider - Provider Date of Admission: 03/13/18 19:44 Attending physician: Geovani Diaz MD Time Spent in preparation of Discharge (in minutes): 30 Diagnosis - Discharge Diagnosis (1) Bacteremia due to Gram-negative bacteria Status: Acute (2) Epididymo-orchitis Status: Acute (3) Sepsis Status: Acute (4) Acute epididymitis Status: Acute Hospital Course - Lab Results Lab Results: Micro Results 03/15/18 04:20 Blood-Venous Blood Culture - Final NO GROWTH AFTER 5 DAYS 03/15/18 04:20 Blood-Venous Gram Stain - Final TEST NOT PERFORMED 03/15/18 04:20 Blood-Venous Blood Culture - Final NO GROWTH AFTER 5 DAYS 03/15/18 04:20 Blood-Venous Gram Stain - Final TEST NOT PERFORMED 03/16/18 17:25 Urine,Clean Catch Urine Culture - Final No Growth (<1,000 CFU/ML) 03/13/18 16:15 Blood-Venous Blood Culture - Final NO GROWTH AFTER 5 DAYS 03/13/18 16:15 Blood-Venous Gram Stain - Final TEST NOT PERFORMED 03/13/18 16:23 Urine,Random Urine Culture - Final Escherichia Coli 03/13/18 16:00 Blood-Venous Blood Culture - Final Escherichia Coli 03/13/18 16:00 Blood-Venous Gram Stain - Final Most Recent Lab Values WBC 8.1 K/uL (4.8-10.8) 03/17/18 10:47 RBC 4.29 Mil/uL (4.40-5.90) L 03/17/18 10:47 Hgb 13.2 g/dL (12.0-18.0) 03/17/18 10:47 Hct 37.6 % (35.0-51.0) 03/17/18 10:47 MCV 87.8 fl (80.0-94.0) 03/17/18 10:47 MCH 30.8 pg (27.0-31.0) 03/17/18 10:47 MCHC 35.0 g/dL (33.0-37.0) 03/17/18 10:47 RDW 14.8 % (11.5-14.5) H 03/17/18 10:47 Plt Count 231 K/uL (130-400) 03/17/18 10:47 MPV 8.4 fl (7.2-11.7) 03/15/18 04:20 Neut % (Auto) 84.5 % (50.0-75.0) H 03/15/18 04:20 Lymph % (Auto) 8.4 % (20.0-40.0) L 03/15/18 04:20 [place] % (Auto) 6.9 % (0.0-10.0) 03/15/18 04:20 Eos % (Auto) 0.0 % (0.0-4.0) 03/15/18 04:20 Baso % (Auto) 0.2 % (0.0-2.0) 03/15/18 04:20 Neut # (Auto) 12.8 K/uL (1.8-7.0) H 03/15/18 04:20 Lymph # (Auto) 1.3 K/uL (1.0-4.3) 03/15/18 04:20 [place] # (Auto) 1.0 K/uL (0.0-0.8) H 03/15/18 04:20 Eos # (Auto) 0.0 K/uL (0.0-0.7) 03/15/18 04:20 Baso # (Auto) 0.0 K/uL (0.0-0.2) 03/15/18 04:20 Neutrophils % (Manual) 88 % (42-75) H 03/15/18 04:20 Lymphocytes % (Manual) 8 % (20-50) L 03/15/18 04:20 Monocytes % (Manual) 4 % (0-10) 03/15/18 04:20 Platelet Estimate Normal (NORMAL) 03/15/18 04:20 Large Platelets Present 03/15/18 04:20 Anisocytosis (manual) Slight 03/15/18 04:20 Microcytosis (manual) Slight 03/15/18 04:20 Tear Drop Cells Slight 03/15/18 04:20 pO2 50 mm/Hg (30-55) 03/13/18 04:25 VBG pH 7.53 (7.32-7.43) H 03/13/18 04:25 VBG pCO2 31 mmHg (40-60) L 03/13/18 04:25 VBG HCO3 27.6 mmol/L 03/13/18 04:25 VBG Total CO2 26.9 mmol/L (22-28) 03/13/18 04:25 VBG O2 Sat (Calc) 92.9 % (40-65) H 03/13/18 04:25 VBG Base Excess 3.7 mmol/L (0.0-2.0) H 03/13/18 04:25 VBG Potassium 3.8 mmol/L (3.6-5.2) 03/13/18 04:25 Sodium 129.0 mmol/L (132-148) L 03/13/18 04:25 Chloride 96.0 mmol/L (98-107) L 03/13/18 04:25 Glucose 118 mg/dL (75-110) H 03/13/18 04:25 Lactate 1.0 mmol/L (0.7-2.1) 03/13/18 04:25 FiO2 21.0 % 03/13/18 04:25 Sodium 135 mmol/l (132-148) 03/15/18 04:20 Potassium 3.9 MMOL/L (3.6-5.0) 03/15/18 04:20 Chloride 99 mmol/L (98-107) 03/15/18 04:20 Carbon Dioxide 27 mmol/L (22-30) 03/15/18 04:20 Anion Gap 13 (10-20) 03/15/18 04:20 BUN 10 mg/dl (9-20) 03/15/18 04:20 Creatinine 0.7 mg/dl (0.8-1.5) L 03/15/18 04:20 Est GFR ( Amer) > 60 03/15/18 04:20 Est GFR (Non-Af Amer) > 60 03/15/18 04:20 Random Glucose 125 mg/dL (75-110) H 03/15/18 04:20 Calcium 8.7 mg/dL (8.4-10.2) 03/15/18 04:20 Total Bilirubin 0.6 mg/dl (0.2-1.3) 03/14/18 05:52 AST 48 U/L (17-59) 03/14/18 05:52 ALT 61 U/L (21-72) 03/14/18 05:52 Alkaline Phosphatase 170 U/L (38-126) H 03/14/18 05:52 Total Protein 7.6 G/DL (6.3-8.2) 03/14/18 05:52 Albumin 3.6 g/dL (3.5-5.0) 03/14/18 05:52 Globulin 4.0 gm/dL (2.2-3.9) H 03/14/18 05:52 Albumin/Globulin Ratio 0.9 (1.0-2.1) L 03/14/18 05:52 Amylase 50 U/L (30-110) 03/13/18 16:23 Lipase 64 U/L (23-300) 03/13/18 16:23 Prostate Specific Ag 11.2 ng/ML (0.00-4.0) H 03/14/18 05:52 Venous Blood Potassium 3.8 mmol/L (3.6-5.2) 03/13/18 04:25 Urine Color Kaur (YELLOW) 03/13/18 16:23 Urine Clarity Turbid (Clear) 03/13/18 16:23 Urine pH 6.0 (5.0-8.0) 03/13/18 16:23 Ur Specific [place] 1.016 (1.003-1.030) 03/13/18 16:23 Urine Protein 100 mg/dL (NEGATIVE) 03/13/18 16:23 Urine Glucose (UA) Neg mg/dL (Normal) 03/13/18 16:23 Urine Ketones 20 mg/dL (NEGATIVE) 03/13/18 16:23 Urine Blood Large (NEGATIVE) 03/13/18 16:23 Urine Nitrate Positive (NEGATIVE) H 03/13/18 16:23 Urine Bilirubin Negative (NEGATIVE) 03/13/18 16:23 Urine Urobilinogen 2.0 mg/dL (0.2-1.0) 03/13/18 16:23 Ur Leukocyte Esterase Large [place]/uL (Negative) 03/13/18 16:23 Urine RBC (Auto) 98 /hpf (0-3) H 03/13/18 16:23 Urine Microscopic WBC 1414 /hpf (0-5) H 03/13/18 16:23 Ur Squamous Epith Cells 1 /hpf (0-5) 03/13/18 16:23 Ur Transition Epith Cell 3 /hpf (0-3) 03/13/18 16:23 Urine Bacteria Mod (<OCC) H 03/13/18 16:23 RPR Nonreactive (NONREACTIVE) 03/15/18 15:57 T.pallidum Ab (FTA-ABS) Nonreactive (Nonreactive) 03/15/18 15:57 C.trachomatis RNA (TMA) Not detected (Not Detected) 03/13/18 17:53 Hepatitis A IgM Ab Negative (NEGATIVE) 03/15/18 04:20 Hep Bs Antigen Negative (NEGATIVE) 03/15/18 04:20 Hep B Core IgM Ab Negative (NEGATIVE) 03/15/18 04:20 Hepatitis C Antibody Negative (NEGATIVE) 03/15/18 04:20 HIV-1 Ab Rapid Screen Non reactive (NON REAC) 03/15/18 15:57 Influenza Typ A,B (EIA) Negative for flu a/b (NEGATIVE) 03/13/18 16:23 N.gonorrhoeae RNA (TMA) Not detected (Not Detected) 03/13/18 17:53 - Hospital Course Hospital Course: AFEBRILE SCROTAL AND TESTICULAR PAIN RESOLVED SWELLING RESOLVED ALL CULTURES NEGATIVE Discharge Exam - Head Exam Head Exam: ATRAUMATIC, NORMAL INSPECTION, NORMOCEPHALIC - Eye Exam Eye Exam: EOMI, Normal appearance, PERRL Pupil Exam: NORMAL ACCOMODATION, PERRL - GI/Abdominal Exam GI & Abdominal Exam: Normal Bowel Sounds - Rectal Exam Rectal Exam: NORMAL INSPECTION - Neurological Exam Neurological exam: Alert, CN II-XII Intact, Normal Gait, Oriented x3, Reflexes Normal - Psychiatric Exam Psychiatric exam: Normal Affect, Normal Mood - Skin Skin Exam: Dry, Intact, Normal Color, Warm Discharge Plan - Follow Up Plan Condition: STABLE Disposition: HOME/ ROUTINE Patient education suggested?: Yes Instructions: Sepsis in Adults, Epididymo-orchitis (ED) Additional Instructions: hacer edwina con adair doctor primario dentro de 1 semana Referrals: Saadia Lopez MD [Staff Provider] - Jose Mobley Jr., MD [Staff Provider] - Martínez Pleitez DO [Family Provider] -
== END 2018-03-26 15:00 | disposition home health service (06) | DRG 901 ==
LOC: H.ER 13:58 → H.ERHOLD 19:44 → H.TEL 21:47 → H.MEDSURG1 03-16 13:25
PROVIDERS: ADMIT Internal Medicine Pulmonary Disease; ATTEND Internal Medicine Pulmonary Disease
DX: A41.51 Sepsis due to Escherichia coli [E. coli] (principal); N39.0 Urinary tract infection, site not specified; N45.3 Epididymo-orchitis; K76.89 Other specified diseases of liver; N50.89 Other specified disorders of the male genital organs; R91.1 Solitary pulmonary nodule; R97.20 Elevated prostate specific antigen [PSA]; Z23 Encounter for immunization; Z16.23 Resistance to quinolones and fluoroquinolones

== ENCOUNTER 2018-03-29 16:29 | Emergency (ER) | payer MEDICAID, OTHER ==
[2018-03-29 16:30] VITALS: BMI 27.2
[2018-03-29 16:50] VITALS: RESP 16
[2018-03-29] MEDS ORDERED: Oxycodone/Acetaminophen 5/325 mg Tab PO STA (18:41)
[2018-03-29 19:05] LABS: BASO # 0.1 K/uL (0.0-0.2); BASO % 0.9 % (0.0-2.0); EOS # 0.1 K/uL (0.0-0.7); EOS % 1.1 % (0.0-4.0); HEMOGLOBIN 12.5 g/dL (12.0-18.0); LYMPH # 2.3 K/uL (1.0-4.3); LYMPH % 30.8 % (20.0-40.0); MEAN CELL VOLUME 88.5 fl (80.0-94.0); MEAN CORPUSCULAR HEMOGLOBIN 29.2 pg (27.0-31.0); MEAN PLATELET VOLUME 7.5 fl (7.2-11.7); MONO # 0.5 K/uL (0.0-0.8); MONO % 6.9 % (0.0-10.0); NEUT # 4.4 K/uL (1.8-7.0); NEUT % 60.3 % (50.0-75.0); RBC 4.27 Mil/uL (4.40-5.90); RED CELL DISTRIBUTION WIDTH 14.3 % (11.5-14.5); WHITE BLOOD COUNT 7.3 K/uL (4.8-10.8)
[2018-03-29 19:20] LABS: BLOOD UREA NITROGEN 23 mg/dl (9-20)
[2018-03-29 19:21] LABS: CALCIUM 9.2 mg/dL (8.4-10.2); GFR NON-AFRICAN AMERICAN > 60
--- NOTE | 2018-03-29 19:23 | ED PDOC ---
HPI: Male Pain Time Seen by Provider: 03/29/18 18:18 Chief Complaint (Nursing): Male Genitourinary Chief Complaint (Provider): Male Genitourinary History Per: Patient History/Exam Limitations: no limitations Onset/Duration Of Symptoms: Days Current Symptoms Are (Timing): Still Present Additional Complaint(s): 53 y/o male presents to the ED for evaluation of left groin pain. Patient was had been admitted for acute epididymitis. Patient had been treated here in the ER and after failure of outpatient treatment, patient had been admitted here. Patient was just discharged three days ago and reports of felling well until today. 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 Patient reports of the left testicle becoming more swollen than the right. PMD: None Past Medical History Reviewed: Historical Data, Nursing Documentation, Vital Signs Vital Signs: Last Vital Signs Temp 98 F 03/29/18 16:48 Pulse 71 03/29/18 16:48 Resp 16 03/29/18 16:48 BP 118/71 03/29/18 16:48 Pulse Ox 98 03/29/18 16:48 - Medical History PMH: No Chronic Diseases Denies: Chronic Kidney Disease - Surgical History Surgical History: No Surg Hx - Family History Family History: States: Unknown Family Hx - Immunization History Hx Tetanus Toxoid Vaccination: No Hx Influenza Vaccination: No Hx Pneumococcal Vaccination: No - Home Medications Home Medications: Ambulatory Orders Medication Instructions Recorded Naproxen [EC-Naprosyn] 375 mg PO BID PRN 03/13/18 Naproxen [Naprosyn] 500 mg PO BID #30 tablet 03/29/18 - Allergies Allergies/Adverse Reactions: Allergies Allergy/AdvReac Type Severity Reaction Status Date / Time No Known Allergies Allergy Verified 03/29/18 16:47 Review of Systems ROS Statement: Except As Marked, All Systems Reviewed And Found Negative Genitourinary Male: Positive for: Other (Testicular Pain) Physical Exam - Reviewed Nursing Documentation Reviewed: Yes Vital Signs Reviewed: Yes - Physical Exam Gastrointestinal/Abdominal: Positive for: Normal Exam, Soft. Negative for: Tenderness Male Genital Exam: Positive for: testicular tenderness (L) (tenderness to palpation to the posterior testicle), other (Left testicle mildly enlarged to the right. Right testicle no abnormalities. Penis no abnormalities). Negative for: erythema, hernia mass (or palpable mass), urethral discharge - Laboratory Results Result Diagrams: 03/29/18 18:59 03/29/18 18:59 - ECG O2 Sat by Pulse Oximetry: 98 (RA) Pulse Ox Interpretation: Normal Medical Decision Making Medical Decision Making: Time: 1919 A/P: Workup for continued epididymitis vs hernia -- Testicular US -- Percocet for pain -- Urinalysis -- Reassess patient -- BMP -- CBC with Differentials -- Percocet 5/325 mg PO -- Urine C&S -- Urinalysis -- US Testes Duplex Complete -- Patient endorsed to Dr. Adame, pending ultrasound and final ER disposition. Scribe Attestation: Documented by Sandra Lomas, acting as a scribe Joycelyn Harris MD. Provider Scribe Attestation: All medical record entries made by the Scribe were at my direction and personally dictated by me. I have reviewed the chart and agree that the record accurately reflects my personal performance of the history, physical exam, medical decision making, and the department course for this patient. I have also personally directed, reviewed, and agree with the discharge instructions and disposition. Disposition - Clinical Impression Clinical Impression: Groin pain, chronic, left - Patient ED Disposition Is Patient to be Admitted: Transfer of Care - Disposition Referrals: Jose Mobley Jr., MD [Staff Provider] - Disposition: Transfer of Care Disposition Time: 19:20 Condition: FAIR Prescriptions: Naproxen [Naprosyn] 500 mg PO BID #30 tablet Instructions: Epididymitis Forms: [facility] (Sinhala) Print Language: ANGUILLAN Patient Signed Over To: Jake Adame
--- NOTE | 2018-03-29 19:33 | ED PDOC ---
- Laboratory Results Result Diagrams: 03/29/18 18:59 03/29/18 18:59 - ECG O2 Sat by Pulse Oximetry: 98 (RA) Pulse Ox Interpretation: Normal Medical Decision Making Medical Decision Making: Time: 1919 -- Patient endorsed to me by Dr. Harris, pending US and final ER disposition. [id number] --U/S showed possible orchitis and chronic epididymitis, which is likely a sequelae from his recent infection. No white count, afebrile, and no erythema on scrotal exam. Advised patient not to lift heavy objects. Advised rest, NSAIDs, and strongly encouraged followup with urology and PMD. --Very well appearing upon discharge Scribe Attestation: Documented by Sandra Lomas, acting as a scribe Javier Adame MD. Provider Scribe Attestation: All medical record entries made by the Scribe were at my direction and personally dictated by me. I have reviewed the chart and agree that the record accurately reflects my personal performance of the history, physical exam, medical decision making, and the department course for this patient. I have also personally directed, reviewed, and agree with the discharge instructions and disposition. Disposition - Clinical Impression Clinical Impression: Groin pain, chronic, left - POA Present On Arrival: None - Disposition Referrals: Jose Mobley Jr., MD [Staff Provider] - Disposition: Routine/Home Disposition Time: 23:00 Condition: FAIR Prescriptions: Naproxen [Naprosyn] 500 mg PO BID #30 tablet Instructions: Epididymitis Forms: [facility] (Ghanaian) Print Language: EQUATORIAL GUINEAN
[2018-03-29] MEDS ORDERED: Oxycodone/Acetaminophen 5/325 mg Tab ONE (19:52)
[2018-03-29 20:02] LABS: URINE BACTERIA RARE (<OCC); URINE BILIRUBIN NEGATIVE (NEGATIVE); URINE BLOOD NEGATIVE (NEGATIVE); URINE CLARITY CLEAR (Clear); URINE COLOR YELLOW (YELLOW); URINE GLUCOSE (UA) NEG (Normal); URINE LEUKOCYTE ESTERASE NEG Leu/uL (Negative); URINE PROTEIN NEGATIVE (NEGATIVE); URINE UROBILINOGEN 0.2-1.0 mg/dL (0.2-1.0)
[2018-03-29 23:15] VITALS: BP 106/66; PULSE 61; TEMP 97.6
[2018-03-30 04:36] VITALS: O2SAT 98
--- NOTE | 2018-03-30 11:19 | US ---
Date of service: 03/29/2018 HISTORY: left scrotal swelling and pain TECHNIQUE: Realtime sonography through the scrotum with color and doppler flow. COMPARISON: 03/13/2018. FINDINGS: RIGHT TESTICLE: Measures 2.1 x 2.8 x 4.5 cm. Normal echotexture and flow. RIGHT EPIDIDYMIS: Epididymal head measures 0.8 x 0.9 cm. Epididymal head cyst 3 x 2 mm. Prominent right epididymal tail. LEFT TESTICLE: Measures 2.5 x 2.6 x 4.4 cm. Normal echotexture with increased flow consistent with orchitis. LEFT EPIDIDYMIS: Epididymal head measures 1.3 x 1.2 x 0.9 cm. Grossly unremarkable appearance with normal flow. HYDROCELE: None. VARICOCELE: Small and bilateral. OTHER FINDINGS: None. IMPRESSION: Interval resolution of left epididymitis. Interval increase in flow to the left testicle consistent with acute orchitis Small bilateral varicoceles. Concordant results (preliminary interpretation) provided by [employer]. Procedure Completed: 20:29. Preliminary Report: Dictated and Authenticated: 21:25. Final Interpretation: 11:16. March 30, 2018
== END 2018-03-29 23:30 | disposition home or self-care (01) ==
LOC: H.ER 16:29
DX: N45.1 Epididymitis (principal)

== ENCOUNTER 2018-09-24 18:21 | Emergency (ER) | payer MEDICAID, OTHER ==
[2018-09-24 18:23] VITALS: BMI 27.2
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
[2018-09-25 00:01] VITALS: O2SAT 97
--- NOTE | 2018-09-25 00:31 | ED PDOC ---
- ECG O2 Sat by Pulse Oximetry: 97 Medical Decision Making Medical Decision Makin pt endorsed to me by Prem SAVAGE, pending sobriety, crisis eval, and dispo 0200 on evaluation pt is sleeping, easily arousable, A&O x3, normal steady gait reports he did not mean he would kill or hurt anyone, states he drank today but does not usually denies any other complaints, SI, visual or auditory hallucinations pt stable for crisis eval 0250 pt seen and cleared by crisis, Dr. Velazquez, diagnosis alcohol abuse discussed diagnosis, treatment, return precautions and f/u with pt who is understanding, in agreement and stable for dc Disposition Counseled Patient/Family Regarding: Studies Performed, Diagnosis, Need For Followup - Clinical Impression Clinical Impression: Alcohol abuse with intoxication - POA Present On Arrival: None - Disposition Referrals: [facility] [Outside] Disposition: Routine/Home Disposition Time: 02:56 Condition: STABLE Additional Instructions: Thank you for letting us take care of you today. You were treated for alcohol abuse. The emergency medical care you received today was directed at your acute symptoms. If you were prescribed any medication, please fill it and take as directed. It may take several days for your symptoms to resolve. Return to the Emergency Department if your symptoms worsen, do not improve, or if you have any other problems. Please contact your doctor in 2 days for re-evaluation and follow up / or call one of the physicians/clinics you have been referred to that are listed on the Patient Visit Information form that is included in your discharge packet. Bring any paperwork you were given at discharge with you along with any medications you are taking to your follow up visit. Our treatment cannot replace ongoing medical care by a primary care provider (PCP) outside of the emergency department. Instructions: Alcohol Abuse and Alcoholism (DC) Print Language: POLISH
[2018-09-25 04:21] VITALS: BP 112/58; PULSE 76; RESP 18; TEMP 98.2
== END 2018-09-25 00:40 | disposition home or self-care (01) ==
LOC: H.ER 18:21
DX: F10.129 Alcohol abuse with intoxication, unspecified (principal); Y90.8 Blood alcohol level of 240 mg/100 ml or more